=== PATIENT | female | born 1950 | race Caucasian/White ===

== ENCOUNTER 2017-07-09 10:18 | Outpatient (CLI) | payer MEDICARE, MEDICAID ==
[2017-07-09 12:22] LABS: #Basophils 0.1 thou/uL (0.0-0.2); #Eosinphils 0.2 thou/uL (0.0-0.7); #Lymphocytes 1.9 thou/uL (1.20-3.40); #Monocytes 0.5 thou/uL (0.11-0.59); #Neutrophils 3.3 thou/uL (1.40-6.50); %Basophils 0.9 % (0.0-1.0); %Eosinophils 2.8 % (0.0-10.0); %Lymphocytes 31.3 % (21.0-51.0); Hematocrit 38.9 % (36.0-47.0); Red Blood Cell (RBC) Count 4.15 mill/uL (4.20-5.40); White Blood Cell (WBC) Count 5.9 thou/uL (4.8-10.8)
[2017-07-09 12:41] LABS: Anion Gap 11 mmol/L (10-20); BUN (Urea Nitrogen) 27 mg/dL (9.8-20.1); Calc. Creatinine Clearance 0 mL/min (70-130); Calcium 9.5 mg/dL (7.8-10.44); Carbon Dioxide 30 mmol/L (23-31); Chloride 102 mmol/L (98-107); Estimated GFR-MDRD 33
--- NOTE | 2017-07-09 14:51 | EKG ---
Test Reason : Blood Pressure : / mmHG Vent. Rate : 063 BPM Atrial Rate : 063 BPM P-R Int : 150 ms QRS Dur : 138 ms QT Int : 454 ms P-R-T Axes : 060 070 028 degrees QTc Int : 464 ms Normal sinus rhythm Left bundle branch block Abnormal ECG Confirmed by AUGUSTINE ESCALANTE ([id number]) on 07/09/2017 2:50:32 PM Referred By: RAMESH Confirmed By:AUGUSTINE ESCALANTE
== END 2017-07-09 10:19 | disposition home or self-care (01) ==
LOC: LABBT 10:18
PROVIDERS: ATTEND Specialist
DX: Z01.818 Encounter for other preprocedural examination (principal); K43.2 Incisional hernia without obstruction or gangrene
CPT/HCPCS: 80048; 85025; 93005; 93010

== ENCOUNTER 2017-07-18 08:22 | Outpatient (CLI) | payer MEDICARE, MEDICAID | END 2017-07-18 08:23 | disposition home or self-care (01) | LOC: DTY/OP 08:22 | PROVIDERS: ATTEND Specialist | DX: Z01.818 Encounter for other preprocedural examination (principal); E66.01 Morbid (severe) obesity due to excess calories | CPT/HCPCS: 97802 ==

== ENCOUNTER 2017-07-22 05:36 | Day surgery (SDC) | payer MEDICARE, MEDICAID ==
[2017-07-09 10:49] VITALS: BMI 42.0
[2017-07-22] MEDS ORDERED: CEFAZOLIN/Water 2 GM/20 ML SYRINGE ONE (06:19)
[2017-07-22] MEDS ORDERED: Ketorolac Tromethamine 30 MG/ML VIAL ONE (06:20)
[2017-07-22] MEDS ORDERED: Bupivacaine PF 0.5% 30 ML VIAL ONE (06:47)
[2017-07-22] MEDS ORDERED: Midazolam HCl 2 mg/2 ml Vial ONE ×2 (07:00→07:04)
[2017-07-22] MEDS ORDERED: Fentanyl 100 MCG/2 ML VIAL ONE ×4 (07:00→11:28)
[2017-07-22] MEDS ORDERED: diphenhydrAMINE 50 MG/ML VIAL ONE (07:40)
[2017-07-22] MEDS ORDERED: Glycopyrrolate 0.2 MG/ML 5 ML SYRINGE ONE (07:40)
[2017-07-22] MEDS ORDERED: Metoclopramide HCl 10 MG/2 ML VIAL ONE (07:40)
[2017-07-22] MEDS ORDERED: Ondansetron HCl/PF 4 MG/2 ML Vial ONE (07:40)
[2017-07-22] MEDS ORDERED: Lidocaine 1% PF 5 ML VIAL ONE (07:40)
[2017-07-22] MEDS ORDERED: Dexamethasone 20 MG/5 ML VIAL ONE (07:40)
[2017-07-22] MEDS ORDERED: Propofol 200 MG/20 ML VIAL ONE (07:40)
[2017-07-22] MEDS ORDERED: Morphine 2 MG/ML SYRINGE ONE ×2 (11:39→12:06)
[2017-07-22] MEDS ORDERED: HYDROcodone/Acetaminophen 5/325 mg Tablet ONE (13:01)
--- NOTE | 2017-07-22 20:16 | OP ---
DATE OF PROCEDURE: 07/22/2017 PREOPERATIVE DIAGNOSIS: Recurrent ventral incisional hernia. POSTOPERATIVE DIAGNOSIS: Recurrent ventral incisional hernia. OPERATION PERFORMED: Laparoscopic repair of recurrent ventral incisional hernia with mesh using an 11 cm circular mesh patch. SURGEON: Jm Bryan M.D. ANESTHESIA: General endotracheal. INDICATIONS: The patient is a morbidly obese 67-year-old white female. She has a history of a lapa rotomy for perforated bladder associated with diverticulitis. About a year ago, she underwent lapar oscopic repair of a ventral incisional hernia. She seemed to have excellent results from this initi ally, but returned recently with evidence of a recurrent hernia with bulging of bowel at the area of the umbilicus. She is returned to the operating room at this time for repair. OPERATIVE PROCEDURE IN DETAIL: Informed consent was obtained. The patient was taken to the operati ng room where general endotracheal anesthesia was obtained with the patient in supine position. Abd omen was prepped with ChloraPrep and draped in sterile fashion. Local anesthetic was infiltrated an d a 5 mm right lateral incision was created at prior incision site. A Veress needle was passed thro ugh this and pneumoperitoneum established using carbon dioxide up to a pressure of 15 mmHg. A 5 mm trocar port was passed through this same incision. Laparoscopic camera was passed through this port . Under direct vision, I placed 2 additional ports at the same side as prior ports, one in the righ t upper and one in the right lower abdomen. Attention was turned internally. There was an easily visible hernia defect with minimal adhesions t o this. There were several loops of bowel present within this that reduced spontaneously with mild external pressure. There was one omental adhesion and one bowel adhesion to the anterior abdominal wall. These were each taken down uneventfully. There was some omentum adherent to the left side of the abdomen extending around to the inferior aspect of the abdominal wall. There appeared to have been a mesh in this area. Attention was turned to the defect. It had internal measurements of 3 x 4 cm. The defect was close d using percutaneous sutures of 0 Ethibond placed with a GraNee needle. Three sutures were placed w ith excellent closure of the defect. An 11 cm mesh patch was obtained using Ventralex mesh. This was prepared on the back table by efrain galaviz four quadrant sutures of 0 Ethibond. The mesh was moistened and placed in the abdominal cavity. The sutures were withdrawn through the anterior abdominal wall using the GraNee needle. The mesh w as appropriately oriented with the anti-adhesive coating internally. The sutures were tied giving e xcellent coverage of the mesh over the hernia defect. A final suture of 0 Ethibond was placed throu gh the center of the mesh patch. The secure strap device was used to place a series of absorbable tacks circumferentially around the outside of the mesh as well as around the inside. This afforded excellent approximation of the mesh to the abdominal wall. In order to appropriately place the tacks, I had to place two additional 5 mm ports on the left lateral abdominal wall and this was done under direct vision. The fascia at the 12 mm port site was closed with 0 Vicryl suture using a GraNee needle. All ports and instruments were removed under direct vision. Pneumoperitoneum was carefully evacuated. Quarte r percent Marcaine with epinephrine was infiltrated in each port site. Skin edges approximated with 4-0 Monocryl subcuticular suture. Dermabond was placed externally. A compression dressing was wilma jordin within the umbilicus using 4 x 4 gauze as well as Kerlix roll, foam tape and Mastisol. There we re no complications. Blood loss was negligible. The patient tolerated the procedure well and was t aken to recovery in stable condition.
== END 2017-07-22 14:05 | disposition home or self-care (01) ==
LOC: SDC 05:36
PROVIDERS: ATTEND Specialist
PROC: 0WUF4JZ Supplement Abdominal Wall with Synthetic Substitute, Percutaneous Endoscopic Approach (ICD-10-PCS; principal; 2017-07-22)
DX: K43.0 Incisional hernia with obstruction, without gangrene (principal); I10 Essential (primary) hypertension; K21.9 Gastro-esophageal reflux disease without esophagitis; G25.81 Restless legs syndrome; I44.7 Left bundle-branch block, unspecified; J45.909 Unspecified asthma, uncomplicated; E66.01 Morbid (severe) obesity due to excess calories; Z68.41 Body mass index [BMI] 40.0-44.9, adult; Z88.2 Allergy status to sulfonamides; Z88.8 Allergy status to other drugs, medicaments and biological substances; Z91.041 Radiographic dye allergy status; Z79.899 Other long term (current) drug therapy; Z98.51 Tubal ligation status; Z98.890 Other specified postprocedural states; Z87.440 Personal history of urinary (tract) infections
CPT/HCPCS: 96374; C1781; J0131; J1100; J1200; J1885; J2001; J2250; J2270; J2405; J2704; J2765; J3010; S0020

== ENCOUNTER 2017-09-30 09:46 | Outpatient (CLI) | payer MEDICARE, MEDICAID | END 2017-09-30 09:47 | disposition home or self-care (01) | LOC: BICBD 09:46 | PROVIDERS: ATTEND Internal Medicine | DX: Z78.0 Asymptomatic menopausal state (principal) | CPT/HCPCS: 77080 ==

== ENCOUNTER 2017-11-07 11:30 | Inpatient (IN) | payer MEDICARE, MEDICAID ==
[2018-01-01] MEDS ORDERED: Heparin 5,000 UNITS/ML VIAL ONE (06:11)
[2018-01-01] MEDS ORDERED: Scopolamine 1.5 mg/72 hour Patch ONE (06:12)
[2018-01-01] MEDS ORDERED: cefOXitin 2 GM in Sodium Chloride 0.9% 100 ML IVPB SCH (06:30)
[2018-01-01] MEDS ORDERED: Fentanyl 250 MCG/5 ML VIAL ONE (07:06)
[2018-01-01] MEDS ORDERED: Bupivacaine/Epinephrine 0.25% 30 ML VIAL ONE (07:09)
[2018-01-01] MEDS ORDERED: Promethazine HCl 25 MG/ML VIAL ONE (07:27)
[2018-01-01] MEDS ORDERED: Ondansetron PF 4 MG/2 ML Vial ONE ×2 (07:27→16:33)
[2018-01-01] MEDS ORDERED: Phenylephrine HCL 10 MG/ML VIAL ONE (09:03)
[2018-01-01] MEDS ORDERED: SUGAMMADEX SODIUM 500 MG/5 ML VIAL ONE (09:05)
[2018-01-01] MEDS ORDERED: Midazolam HCl 2 mg/2 ml Vial ONE ×2 (10:25→10:56)
[2018-01-01] MEDS ORDERED: Fentanyl 100 MCG/2 ML VIAL ONE ×2 (11:26→12:55)
[2018-01-01 11:46] LABS: Actual Bicarbonate (HCO3a) 20.1 mEq/L (22-26); Base Excess (BEa) -6.9 mEq/L (0 (+/-) 2.5); CO2 Tension 46.4 mmHg (35.0-45.0); Carboxyhemoglobin (COHb) 1.2 gm% (0.0-3.0); Hematocrit-ABG 40.1 % (36.0-47.0); Hemoglobin (Hb) 12.1 g/dL (12.0-16.0); O2 Tension (PaO2) 138.4 mmHg (80.0-100.0); pH, Arterial 7.26 (7.35-7.45)
[2018-01-01 11:47] LABS: Analyzer IN Cardio OR; Calcium, Ionized 1.2 mmol/L (1.12-1.30); Potassium - ABG Lab 4.4 mmol/L (3.70-5.30); Puncture Site RRA
--- NOTE | 2018-01-01 12:13 | RAD ---
SINGLE VIEW CHEST: HISTORY: Hiatal hernia repair. COMPARISON: 10/01/2012 FINDINGS: A single view of the chest shows a normal sized cardiomediastinal silhouette. There is an endotrache al tube that extends into the right mainstem bronchus and should be withdrawn approximately 4.5 cm. There is extensive subcutaneous air. There is atelectasis in the left lung base. No pneumothorax is visualized. IMPRESSION: 1. Right mainstem intubation. 2. Extensive subcutaneous air. These findings were discussed with Dr. Luna at 11:28 a.m. on 01/01/2018. CODE CR POS: [facility]
[2018-01-01] MEDS ORDERED: D5 1/2 NS w/20 mEq KCL 1,000 ML ONE (13:36)
[2018-01-01] MEDS ORDERED: diphenhydrAMINE 50 MG/ML VIAL IVP PRN (14:18)
[2018-01-01] MEDS ORDERED: Promethazine HCl 25 MG/ML VIAL IM PRN (14:18)
[2018-01-01] MEDS ORDERED: hydrALAZINE 20 MG/ML VIAL SLOW IVP PRN (14:18)
[2018-01-01] MEDS ORDERED: Dextrose 50% Abboject 50 ML SYRINGE SLOW IVP PRN (14:18)
[2018-01-01] MEDS ORDERED: Dextrose 5% in Water 1,000 ML IV PRN (14:18)
[2018-01-01] MEDS ORDERED: Morphine 4 MG/ML VIAL SLOW IVP PRN (14:18)
[2018-01-01] MEDS ORDERED: Hydrocodone-Acetamin 15 ML UDCUP PO PRN (14:18)
[2018-01-01 14:20] VITALS: BMI 38.5
[2018-01-01] MEDS: Ondansetron PF 4 MG/2 ML Vial IVP PRN (14:29)
[2018-01-01] MEDS: D5 1/2 NS w/20 mEq KCL 1,000 ML IV SCH ×2 (14:29→22:03)
[2018-01-01] MEDS: Morphine 4 MG/ML VIAL SLOW IVP PRN ×3 (14:29→22:02)
[2018-01-01] MEDS ORDERED: Lidocaine 1% PF 5 ML VIAL ONE (16:33)
[2018-01-01] MEDS ORDERED: PROPOFOL 200 MG/20 ML VIAL ONE (16:33)
[2018-01-01] MEDS ORDERED: PHENYLEPHRINE-NS 100 MCG/ML 10 ML SYRINGE ONE (16:33)
[2018-01-01] MEDS ORDERED: Dexamethasone 20 MG/5 ML VIAL ONE (16:33)
[2018-01-01] MEDS ORDERED: Succinylcholine Chloride 20 MG/ML 10 ml SYRINGE FS ONE (16:33)
[2018-01-01] MEDS ORDERED: Enoxaparin Sodium 40 MG/0.4 ML SYRINGE SC SCH (21:00)
[2018-01-02] MEDS: Ondansetron PF 4 MG/2 ML Vial IVP PRN (05:59)
[2018-01-02] MEDS: D5 1/2 NS w/20 mEq KCL 1,000 ML IV SCH (05:59)
[2018-01-02 06:07] LABS: ALT (SGPT) 69 U/L (8-55); AST (SGOT) 99 U/L (5-34); Albumin 3.3 g/dL (3.4-4.8); Alkaline Phosphatase 74 U/L (40-150); Anion Gap 11 mmol/L (10-20); BUN (Urea Nitrogen) 27 mg/dL (9.8-20.1); Bilirubin, Total 0.2 mg/dL (0.2-1.2); Calc. Creatinine Clearance 69 mL/min (70-130); Calcium 8.7 mg/dL (7.8-10.44); Carbon Dioxide 19 mmol/L (23-31); Chloride 108 mmol/L (98-107); Estimated GFR-MDRD 45; Globulin 3.1 g/dL (2.4-3.5); Glucose 118 mg/dL (80-115); Hemoglobin 11.6 g/dL (12.0-16.0); Lymphocytes 22 % (21-51); MDiff Complete? YES; Mean Corpuscular HGB CONC 30.9 g/dL (32.0-36.0); Mean Corpuscular Hemoglobin 30.7 pg (27.0-31.0); Mean Corpuscular Volume 99.4 fl (81.0-99.0); Mean Platelet Volume 10.6 fL (7.4-10.4); Monocytes 9 % (0-10); Neutrophil 69 % (42-75); Platelet Count 123 thou/uL (130-400); Potassium 5.5 mmol/L (3.5-5.1); Protein, Total 6.4 g/dL (6.0-8.3); RBC Distribution Width 14.9 % (11.5-14.5); Red Blood Cell (RBC) Count 3.79 mill/uL (4.20-5.40); Sodium 132 mmol/L (136-145); White Blood Cell (WBC) Count 8.3 thou/uL (4.8-10.8)
[2018-01-02] MEDS: Morphine 4 MG/ML VIAL SLOW IVP PRN (08:47)
[2018-01-02] MEDS ORDERED: Pantoprazole 40 MG VIAL IVP SCH (09:00)
[2018-01-02 11:57] VITALS: BP 106/67; TEMP 98.5
--- NOTE | 2018-01-05 10:11 | OP ---
DATE OF OPERATION: 01/01/2018 PREOPERATIVE DIAGNOSES: Morbid obesity and symptomatic cholelithiasis. POSTOPERATIVE DIAGNOSES: Morbid obesity and symptomatic cholelithiasis with a large paraesophageal h iatal hernia. OPERATION PERFORMED: Repair of large paraesophageal hiatal hernia, sleeve gastrectomy using the ViSi Gi device, laparoscopic cholecystectomy. SURGEON: Jm Bryan MD ANESTHESIA: General endotracheal. INDICATIONS: The patient is a 67-year-old morbidly obese white female. She has undergone preoperati ve evaluation and education and presents at this time, enthusiastic to proceed with sleeve gastrectom y. She is recognized to have symptoms referable to gallbladder and ultrasound proven cholelithiasis and I have therefore recommended simultaneous cholecystectomy. DESCRIPTION OF OPERATION: Informed consent was obtained. The patient was taken to the operating sabrina m where general endotracheal anesthesia obtained with the patient in supine position. Abdomen was pr epped with ChloraPrep and draped in sterile fashion. Local anesthetic was infiltrated and a 5-mm sup raumbilical incision was created through which a Veress needle was passed into the abdominal cavity. Pneumoperitoneum was established using carbon dioxide up to a pressure of 15 mmHg. A 5-mm trocar pa ssed through the same incision. Laparoscopic camera was passed this port. Under direct vision, 4 ad ditional ports were placed including 5-mm bilateral subcostal port, a 12-mm right paramedian port, an d a 15-mm left paramedian port. A 5-mm incision was created in the epigastrium through which I passe d the Pb retractor to elevate the left lobe of the liver. Initial inspection of the hiatus revealed a large easily visible hiatal hernia through which the fund us and significant portion of the body was herniating up into the mediastinum. This large hiatal her [place] clearly required repair. I began dissection along the lesser curve by incising the pars flaccida and dissecting down to the right bharathi of the diaphragm. The peritoneum around the hiatal defect was dissected up to the anterior aspect and over onto the left bharathi as well. When I returned my attenti on to the right side, with the stomach retracted distally, I was able to dissect a retroesophageal wi ndow through which I placed a Jean drain. I then mobilized the greater curvature of the stomach. Beginning about 4 cm from the pylorus, the va scular and fatty tissue of the greater curvature was taken down using the LigaSure device in an ascen ding fashion up to the hiatus. The left bharathi is fully cleared. The hernia sac was fully dissected o ut of the mediastinum and reduced. The ViSiGi device had already been passed within the stomach and was used to calibrate the hiatal francesca sure. The hiatus was closed on the posterior aspect with 3 interrupted sutures of 2-0 Ethibond that were sutured with the tie-knot device. Using these three sutures, the hiatus was appropriately close d around the esophagus, leaving adequate room to avoid esophageal impingement. Attention was then turned to the gastrectomy. The ViSiGi device was advanced to the pylorus where it was placed to suction. The gastrectomy was then performed using a series of fires of the [place] st apler in an ascending fashion, beginning at 4 cm from the pylorus along the ViSiGi device and with Vi Lola device on suction. A green load was employed initially followed by a gold load and a series of blue loads up to the angle of His. Great care was taken to avoid narrowing the incisura or the gastr oesophageal junction. When the transection was complete, the gastric tube was inflated using the ViS iGi device with irrigation along the staple line. There was no evidence of air leak or bleeding. Th e ViSiGi device was taken off suction and removed. The resected segment of the stomach was removed t hrough the 15-mm port site which was closed with a zizjht-zz-hixjw suture of 0 Vicryl using the GraNe e needle. Attention was then turned to the gallbladder. The gallbladder was grasped and retracted in a cephala d direction. The infundibulum was grasped and retracted laterally and inferiorly. Careful dissectio n was carried out the apex of the gallbladder identified both the cystic duct and cystic artery and d ividing each of these between clips, leaving 2 on the side to remain within the abdomen. The gallbla dder was dissected off the gallbladder fossa using electrocautery and removed through the 15-mm port site. The upper abdomen was thoroughly irrigated. All irrigant was aspirated. The area of the gall bladder resection, the hiatal hernia repair, and the gastrectomy were all inspected and found to be w ithout evidence of concern. All ports and instruments removed under direct vision. Pneumoperitoneum was carefully evacuated. A 0.25% Marcaine with epinephrine was infiltrated in each port site. Skin edges approximated with 4-0 Monocryl subcuticular suture. Dermabond was placed externally. There w ere no complications. Patient tolerated the procedure well and was taken to recovery room in stable condition. Of note, the patient's tissues were of generally poor quality. Carbon dioxide did dissec t through the subcutaneous tissue which made it difficult to keep the ports within her abdomen. The muscular tissue in the left upper quadrant port quite easily when it was dilated to allow extraction of the stomach leaving a larger than apical defect. Additionally, an intentional left-sided iatrogen ic pneumothorax was created during the dissection in the mediastinum and incision of the left pleura. This allowed easier medialization of the left bharathi of the diaphragm and was felt to be inconsequent ial. Patient tolerated the procedure well and was taken to recovery room in stable condition.
--- NOTE | 2018-01-08 19:37 | PQF ---
BEAR PARISH MICHAEL W MD [id number] SURG [id number] CLINICAL DOCUMENTATION CLARIFICATION FORM: POST DISCHARGE Addendum to original discharge summary date: ____ Late entry note date: __ DATE: 01/08/2018 ATTN: ASIA CHANDLER MD Please exercise your independent, professional judgment in responding to the clarification form. Clinical indicators are provided on the bottom of this form for your review Final Diagnosis on the Pathology Report: CHRONIC CHOLECYSTITIS Clarification of Pathology report: Please check appropriate box(s): [ ] Agree w the pathology finding of: [ x ] Other explanation of pathology findings (please specify) - almost all patients have "chronic cholecystitis" on their path when we take out their gallbladder. It is generally irrelevant and doesn't need to change the coding. [ ] Other diagnosis [ ] Unable to determine For continuity of documentation, please document condition throughout progress notes and discharge summary. Thank You. CLINICAL INDICATORS - SIGNS/ SYMPTOMS / LABS OPERATIVE REPORT PREOPERATIVE DIAGNOSIS: Morbid obesity and symptomatic cholelithiasis POSTOPERATIVE DIAGNOSIS: Morbid obesity and symptomatic cholelithiasis with a large paraesophageal hiatal hernia OPERATION PERFORMED: Repair of large paraesophageal hiatal hernia, sleeve gastrectomy using the ViSiGi device, laparoscopic cholecystectomy PATHOLOGY REPORT B. Gallbladder, cholecystectomy: - Chronic cholecystitis - Cholelithiasis (This form is maintained as a part of the permanent medical record) 2014 [employer]. All Rights Reserved Joel [email or web address] [phone] MTDD
== END 2018-01-02 16:51 | disposition home or self-care (01) | DRG 621 ==
LOC: SURG A 01-01 05:49
PROVIDERS: ADMIT Specialist; ATTEND Specialist
PROC: 0BQT4ZZ Repair Diaphragm, Percutaneous Endoscopic Approach (ICD-10-PCS; principal; 2018-01-01)
PROC: 0FT44ZZ Resection of Gallbladder, Percutaneous Endoscopic Approach (ICD-10-PCS; 2018-01-01)
PROC: 0DB64Z3 Excision of Stomach, Percutaneous Endoscopic Approach, Vertical (ICD-10-PCS; 2018-01-01)
DX: E66.01 Morbid (severe) obesity due to excess calories (principal); I12.9 Hypertensive chronic kidney disease with stage 1 through stage 4 chronic kidney disease, or unspecified chronic kidney disease; K80.20 Calculus of gallbladder without cholecystitis without obstruction; K44.9 Diaphragmatic hernia without obstruction or gangrene; N18.2 Chronic kidney disease, stage 2 (mild); Z68.38 Body mass index [BMI] 38.0-38.9, adult
CPT/HCPCS: 36415; 71045; 80053; 82805; 85025; 88304; 88307; 88312; 94002; C9113; J0131; J0694; J1100; J1644; J1650; J2001; J2250; J2270; J2370; J2405; J2550; J2704; J3010; J7050

== ENCOUNTER 2017-11-17 07:44 | Outpatient (CLI) | payer MEDICARE, MEDICAID | END 2017-11-17 07:45 | disposition home or self-care (01) | LOC: BICULT 07:44 | PROVIDERS: ATTEND Specialist | DX: R10.9 Unspecified abdominal pain (principal); K80.20 Calculus of gallbladder without cholecystitis without obstruction; N28.1 Cyst of kidney, acquired | CPT/HCPCS: 76705 ==

== ENCOUNTER 2018-02-05 12:33 | Emergency (ER) | payer MEDICARE, MEDICAID ==
[2018-02-05 13:27] LABS: Bilirubin Negative (Negative); Blood, Urine Negative (Negative); Clarity CLEAR (Clear); Glucose, Urine (Dipstick) Negative (Negative); Leukocyte Trace (Negative); Nitrite Negative (Negative); Protein, Urine (Dipstick) Negative (Neg-Trace); Specific Gravity, Urine 1.013 (1.002-1.036); Urobilinogen 0.2 mg/dL (0.2-1.0)
[2018-02-05 13:29] LABS: Bacteria/HPF None Seen HPF (None Seen); Hyaline Casts/LPF 0-3 HYALINE CAST LPF (0-3 Hyaline); Pathc Cast-AUWi Flag 0.87 (0-2.49); RBC/HPF 0-3 HPF (0-3); Squamous Epithelial 0-3 HPF (0-3); WBC/HPF 0-3 HPF (0-3)
[2018-02-05 13:58] LABS: #Eosinphils 0.1 thou/uL (0.0-0.7); #Lymphocytes 1.5 thou/uL (1.20-3.40); #Monocytes 0.7 thou/uL (0.11-0.59); #Neutrophils 4.8 thou/uL (1.40-6.50); %Basophils 0.6 % (0.0-1.0); %Eosinophils 1.6 % (0.0-10.0); %Lymphocytes 21.1 % (21.0-51.0); %Monocytes 9.7 % (0.0-10.0); %Neutrophils 67.1 % (42.0-75.0); Hemoglobin 12.8 g/dL (12.0-16.0); Mean Corpuscular HGB CONC 34.5 g/dL (32.0-36.0); Mean Corpuscular Hemoglobin 33.4 pg (27.0-31.0); Mean Corpuscular Volume 96.7 fl (81.0-99.0); Mean Platelet Volume 10.9 fL (7.4-10.4); Platelet Count 114 thou/uL (130-400); RBC Distribution Width 14.1 % (11.5-14.5); Red Blood Cell (RBC) Count 3.85 mill/uL (4.20-5.40); White Blood Cell (WBC) Count 7.1 thou/uL (4.8-10.8)
[2018-02-05 14:02] LABS: Large Platelets SLIGHT; MDiff Complete? YES; PLT Morphology Comment Appears Decreased; RBC Morphology Normal
[2018-02-05 14:05] LABS: ALT (SGPT) 12 U/L (8-55); AST (SGOT) 16 U/L (5-34); Albumin 3.6 g/dL (3.4-4.8); Alkaline Phosphatase 71 U/L (40-150); Anion Gap 16 mmol/L (10-20); BUN (Urea Nitrogen) 89 mg/dL (9.8-20.1); Bilirubin, Total 0.4 mg/dL (0.2-1.2); Calc. Creatinine Clearance 0 mL/min (70-130); Calcium 10.1 mg/dL (7.8-10.44); Carbon Dioxide 25 mmol/L (23-31); Chloride 99 mmol/L (98-107); Estimated GFR-MDRD 21; Globulin 2.9 g/dL (2.4-3.5); Glucose 102 mg/dL (80-115); Magnesium 2.5 mg/dL (1.6-2.6); Potassium 3.7 mmol/L (3.5-5.1); Protein, Total 6.5 g/dL (6.0-8.3); Sodium 136 mmol/L (136-145)
[2018-02-05 14:09] LABS: CKMB 1.1 ng/mL (0-6.6); Troponin I 0.011 ng/mL (< 0.028)
== END 2018-02-05 14:35 | disposition home or self-care (01) ==
LOC: ERS 12:33
DX: E86.0 Dehydration (principal); J45.909 Unspecified asthma, uncomplicated; E78.5 Hyperlipidemia, unspecified
CPT/HCPCS: 36415; 80053; 81003; 81015; 82553; 83735; 84484; 85025; 93005

== ENCOUNTER 2018-04-06 12:00 | Outpatient (CLI) | payer MEDICARE, MEDICAID | END 2018-04-06 12:01 | disposition home or self-care (01) | LOC: BICULT 12:00 | PROVIDERS: ATTEND Urology | DX: Q61.02 Congenital multiple renal cysts (principal) | CPT/HCPCS: 76770 ==

== ENCOUNTER 2018-08-18 11:56 | Outpatient (CLI) | payer MEDICARE, MEDICAID | END 2018-08-18 11:57 | disposition home or self-care (01) | LOC: BICMAMMO 11:56 | PROVIDERS: ATTEND Internal Medicine | DX: Z12.31 Encounter for screening mammogram for malignant neoplasm of breast (principal) | CPT/HCPCS: 77063; 77067 ==

== ENCOUNTER 2019-01-27 04:51 | Outpatient (CLI) | payer MEDICARE, MEDICAID ==
--- NOTE | 2019-01-27 10:23 | RAD ---
XR Chest Pa Lat STANDARD HISTORY: Preop COMPARISON: 02/04/2014 study FINDINGS: Heart size within normal limits. There are atherosclerotic changes of the aorta. The lungs are clear of infiltrates. There are arthritic changes of the spine. IMPRESSION: No active intrathoracic disease.
[2019-01-27 10:27] LABS: #Basophils 0.1 thou/uL (0.0-0.2); #Eosinphils 0.2 thou/uL (0.0-0.7); #Lymphocytes 2.4 thou/uL (1.20-3.40); #Monocytes 0.7 thou/uL (0.11-0.59); #Neutrophils 3.4 thou/uL (1.40-6.50); %Basophils 0.9 % (0.0-1.0); %Eosinophils 3.5 % (0.0-10.0); %Lymphocytes 34.7 % (21.0-51.0); %Monocytes 10.5 % (0.0-10.0); %Neutrophils 50.4 % (42.0-75.0); Mean Corpuscular Hemoglobin 34.9 pg (27.0-31.0); Mean Platelet Volume 8.8 fL (7.4-10.4); Platelet Count 202 thou/uL (130-400); White Blood Cell (WBC) Count 6.8 thou/uL (4.8-10.8)
[2019-01-27 10:49] LABS: Anion Gap 13 mmol/L (10-20); BUN (Urea Nitrogen) 22 mg/dL (9.8-20.1); Calc. Creatinine Clearance 0 mL/min (70-130); Calcium 10.2 mg/dL (7.8-10.44); Carbon Dioxide 29 mmol/L (23-31); Chloride 104 mmol/L (98-107); Estimated GFR-MDRD 52; Glucose 91 mg/dL (80-115); Potassium 4.9 mmol/L (3.5-5.1); Sodium 141 mmol/L (136-145)
== END 2019-01-27 04:52 | disposition home or self-care (01) ==
LOC: LABBT 04:51
PROVIDERS: ATTEND Specialist
DX: Z01.818 Encounter for other preprocedural examination (principal); M79.3 Panniculitis, unspecified; K43.9 Ventral hernia without obstruction or gangrene
CPT/HCPCS: 71046; 80048; 85025; 93005; 93010

== ENCOUNTER 2019-02-04 05:59 | Inpatient (IN) | payer MEDICARE, MEDICAID ==
[2019-02-04] MEDS ORDERED: Ondansetron PF 4 MG/2 ML Vial ONE ×3 (06:29→17:31)
[2019-02-04] MEDS ORDERED: Morphine 4 MG/ML VIAL ONE ×2 (06:29→07:18)
[2019-02-04 06:55] LABS: #Lymphocytes 1.4 thou/uL (1.20-3.40); #Monocytes 0.4 thou/uL (0.11-0.59); #Neutrophils 7.8 thou/uL (1.40-6.50); %Basophils 0.5 % (0.0-1.0); %Eosinophils 0.3 % (0.0-10.0); %Lymphocytes 14.5 % (21.0-51.0); %Monocytes 3.6 % (0.0-10.0); %Neutrophils 81.1 % (42.0-75.0); Mean Corpuscular Hemoglobin 36.1 pg (27.0-31.0); Mean Platelet Volume 9.2 fL (7.4-10.4); Platelet Count 215 thou/uL (130-400); RBC Distribution Width 11.1 % (11.5-14.5); Red Blood Cell (RBC) Count 4.42 mill/uL (4.20-5.40); White Blood Cell (WBC) Count 9.7 thou/uL (4.8-10.8)
[2019-02-04 07:16] LABS: ALT (SGPT) 14 U/L (8-55); AST (SGOT) 26 U/L (5-34); Albumin 4.8 g/dL (3.4-4.8); Alkaline Phosphatase 130 U/L (40-150); Anion Gap 19 mmol/L (10-20); BUN (Urea Nitrogen) 24 mg/dL (9.8-20.1); Bilirubin, Total 0.4 mg/dL (0.2-1.2); Calc. Creatinine Clearance 0 mL/min (70-130); Carbon Dioxide 23 mmol/L (23-31); Chloride 102 mmol/L (98-107); Estimated GFR-MDRD 39; Globulin 4.3 g/dL (2.4-3.5); Glucose 199 mg/dL (80-115); Lipase 43 U/L (8-78); Potassium 4.4 mmol/L (3.5-5.1); Protein, Total 9.1 g/dL (6.0-8.3); Sodium 140 mmol/L (136-145)
[2019-02-04 07:24] LABS: Calcium 12.1 mg/dL (7.8-10.44)
--- NOTE | 2019-02-04 07:36 | CT ---
ABDOMEN AND PELVIS CT WITH CONTRAST: Date: 02/04/19 COMPARISON: 08/26/16. INDICATION: Abdominal pain with nausea, vomiting, and diarrhea. FINDINGS: There is a left diaphragmatic hernia which contains multiple loops of obstructed, fluid-filled bowel, with hyperemic hanley. Hernia site is at the medial aspect of the left upper abdomen, at site of a pr esumed gastroesophageal procedure with associated hiatal hernia. Redemonstration of numerous large cysts of each kidney, most notable at the right upper pole. Within the abdomen and pelvis, there are numerous loops of obstructed bowel. No disseminated free air is seen. There is atelectasis at the left lung base. Scattered colonic diver ticula present. IMPRESSION: Acutely obstructed medial left diaphragmatic/hiatal hernia with numerous loops of displaced, obstruct ed small bowel within the left chest, with additional numerous dilated loops of small bowel of the ab domen and pelvis. Recommend urgent surgical consultation in this regard. Telephone call with findings placed to ER physician, Vanessa Jasso, at 0705 hours on 02/04/19. CODE CR. POS: [facility]
[2019-02-04] MEDS ORDERED: Benzocaine 20% Spray 60 ML CAN ONE (07:42)
--- NOTE | 2019-02-04 12:16 | HP ---
CHIEF COMPLAINT: Nausea and vomiting with evidence of incarcerated hiatal hernia. HISTORY OF PRESENT ILLNESS: The patient is a 68-year-old white female, well known to myself from prior operations. 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 I assisted Dr. Ott with that surgery. She recuperated nicely. She had a couple of ventral hernias requiring laparoscopic repair, one in 2015 and one in 2016. She tolerated these both nicely. In December of 2017, a little over a year ago, I performed a laparoscopic sleeve gastrectomy and laparoscopic cholecystectomy and repaired a large paraesophageal hiatal hernia. The hernia was repaired without mesh. She has done very well following her weight loss surgery and has lost 72 pounds, which is 67% of her excess body weight. She has ongoing problems regarding panniculitis and infrapannicular infections, and for this reason, repair of a small ventral hernia and panniculectomy were scheduled for today. This was canceled secondary to insurance related issues. The patient presented to the emergency room this morning complaining of abdominal pain with ongoing nausea and vomiting. CT scan obtained while she was there reveals presence of a large volume of intestine up within the left chest consistent with a recurrence of her hiatal hernia. She also has obstructive phenomena in the small intestine and the rest of her abdomen. I am consulted emergently regarding these problems. PAST MEDICAL HISTORY: 1. History of nephrolithiasis. 2. Anxiety. 3. Seasonal allergies. 4. History of shingles. 5. Resolved hypertension (following bariatric surgery), restless legs syndrome, bilateral renal cysts. PAST SURGICAL HISTORY: Left foot and left ankle surgery in February 2006, right wrist surgery in 2006, tonsillectomy in 1961, tubal ligation in 1974, rectocele repair in 2011, cardiac catheterization in 2013, repair of bladder perforation and diverticular perforation in 2013, laparoscopic ventral hernia repair in 2015 and 2016, sleeve gastrectomy with cholecystectomy and hiatal hernia repair in 2018. MEDICATIONS: Include, 1. Gabapentin. 2. Atorvastatin. 3. Esomeprazole. 4. Coreg. 5. Lisinopril. ALLERGIES: TO SULFA AND MACROBID. PERSONAL AND SOCIAL HISTORY: She is single with 2 children. Her son is present at bedside. She is retired and lives by herself. She does not smoke and does not drink alcohol. REVIEW OF SYSTEMS: Otherwise unremarkable. FAMILY HISTORY: Noncontributory. PHYSICAL EXAMINATION: VITAL SIGNS: She is afebrile. Vital signs within normal limits in the emergency room. GENERAL: She is a well-developed, well-nourished, pleasant white female, resting in bed, in no acute distress. She is alert and oriented x3. Nasogastric tube is in place. HEAD, EYES, EARS, NOSE, AND THROAT: Unremarkable. NECK: Supple. LUNGS: Clear to auscultation. CARDIAC: Regular rate and rhythm. ABDOMEN: Diffusely uncomfortable, but without peritoneal findings. Bowel sounds are present and hypoactive. EXTREMITIES: Unremarkable. LABORATORY DATA: Her white blood cell count is 9.7, hemoglobin is 16. Basic metabolic panel reveals normal electrolytes. Her BUN and creatinine are slightly elevated at 24 and 1.3. Albumin is 4.8. ASSESSMENT AND PLAN: The patient with apparent recurrent hiatal hernia. There appears to be incarcerated large volume of small bowel. I recommend laparoscopic attempt. Given the small bowel dilatation, I may not be able to adequately visualize, so this may have to convert to an open surgery. I discussed all this in detail with the patient and her son. She understands and agrees to proceed with surgery. I would recommend repair of this recurrent hernia with mesh. Job ID: [id number]
[2019-02-04] MEDS ORDERED: Bupivacaine/Epinephrine 0.25% 30 ML VIAL ONE (13:18)
[2019-02-04] MEDS ORDERED: Fentanyl 250 MCG/5 ML VIAL ONE (13:20)
[2019-02-04] MEDS ORDERED: Fentanyl 100 MCG/2 ML VIAL ONE ×3 (14:50→17:21)
[2019-02-04] MEDS ORDERED: Promethazine HCl 25 MG/ML VIAL SLOW IVP PRN (16:41)
[2019-02-04] MEDS ORDERED: Ondansetron HCl/PF 4 MG/2 ML Vial IVP PRN (16:41)
[2019-02-04] MEDS ORDERED: Promethazine HCl 25 MG/ML VIAL IM PRN ×2 (16:41→18:18)
[2019-02-04] MEDS ORDERED: Promethazine HCl 25 MG/ML VIAL ONE (16:54)
[2019-02-04] MEDS ORDERED: Dextrose 5% in Water 1,000 ML IV PRN (18:18)
[2019-02-04] MEDS ORDERED: Ondansetron PF 4 MG/2 ML Vial IVP PRN (18:18)
[2019-02-04] MEDS ORDERED: Dextrose 50% Abboject 50 ML SYRINGE SLOW IVP PRN (18:18)
[2019-02-04] MEDS ORDERED: Acetaminophen 1,000 MG in Premix Bag 1 BAG IVPB SCH (18:18)
[2019-02-04] MEDS ORDERED: Morphine 4 MG/ML VIAL SLOW IVP PRN (18:18)
[2019-02-04] MEDS ORDERED: hydrALAZINE 20 MG/ML VIAL SLOW IVP PRN (18:18)
[2019-02-04] MEDS ORDERED: Morphine 2 MG/ML SYRINGE SLOW IVP PRN (18:18)
[2019-02-04 18:24] VITALS: BMI 28.7
[2019-02-04] MEDS: Lactated Ringer's 1,000 ML IV SCH (18:34)
[2019-02-04] MEDS: Acetaminophen 1,000 MG in Premix Bag 1 BAG IVPB SCH (20:05)
[2019-02-05] MEDS: Acetaminophen 1,000 MG in Premix Bag 1 BAG IVPB SCH ×2 (02:44→09:06)
[2019-02-05] MEDS: Lactated Ringer's 1,000 ML IV SCH (02:44)
[2019-02-05 06:32] LABS: #Eosinphils 0.1 thou/uL (0.0-0.7); #Lymphocytes 1.6 thou/uL (1.20-3.40); #Monocytes 0.6 thou/uL (0.11-0.59); #Neutrophils 5.2 thou/uL (1.40-6.50); %Basophils 0.5 % (0.0-1.0); %Eosinophils 1.1 % (0.0-10.0); %Lymphocytes 21.5 % (21.0-51.0); %Monocytes 8.3 % (0.0-10.0); %Neutrophils 68.7 % (42.0-75.0); Hemoglobin 11.8 g/dL (12.0-16.0); Mean Corpuscular HGB CONC 33.5 g/dL (32.0-36.0); Mean Corpuscular Hemoglobin 34.6 pg (27.0-31.0); Mean Platelet Volume 9.3 fL (7.4-10.4); Platelet Count 142 thou/uL (130-400); RBC Distribution Width 11.4 % (11.5-14.5); Red Blood Cell (RBC) Count 3.42 mill/uL (4.20-5.40); White Blood Cell (WBC) Count 7.6 thou/uL (4.8-10.8)
[2019-02-05 06:41] LABS: Anion Gap 10 mmol/L (10-20); BUN (Urea Nitrogen) 18 mg/dL (9.8-20.1); Calc. Creatinine Clearance 62 mL/min (70-130); Calcium 8.7 mg/dL (7.8-10.44); Carbon Dioxide 24 mmol/L (23-31); Chloride 107 mmol/L (98-107); Estimated GFR-MDRD 57; Glucose 101 mg/dL (80-115); Potassium 3.8 mmol/L (3.5-5.1); Sodium 137 mmol/L (136-145)
--- NOTE | 2019-02-05 08:32 | OP ---
DATE OF PROCEDURE: 02/04/2019 PREOPERATIVE DIAGNOSIS: Incarcerated hiatal hernia. POSTOPERATIVE DIAGNOSIS: Incarcerated hiatal hernia. OPERATION PERFORMED: Laparoscopic repair of incarcerated hiatal hernia with biologic mesh using pliable Strattice mesh. ANESTHESIA: General endotracheal. INDICATIONS: The patient is a 68-year-old white female, well known to myself. A little over a year ago, I performed a laparoscopic sleeve gastrectomy as well as laparoscopic cholecystectomy and repair of a large paraesophageal hiatal hernia. She presented to the emergency room at this time complaining of abdominal pain with nausea and vomiting. CT scan revealed a large diaphragmatic hernia with multiple loops of small bowel incarcerated within the left chest. She is taken to the operating at this time for repair. DESCRIPTION OF OPERATION: Informed consent was obtained. The patient was taken to the operating room where general endotracheal anesthesia was obtained with the patient in supine position. Abdomen was prepped with ChloraPrep and draped in sterile fashion. Local anesthetic was infiltrated using 0.25% Marcaine with epinephrine. A 5 mm supraumbilical incision was created through prior incision site. Veress needle was passed through this incision and pneumoperitoneum established with carbon dioxide up to pressure of 15 mmHg. A 5 mm trocar port was passed through the same incision. Laparoscopic camera was passed through this port. Under direct vision, I placed 4 more ports in a standard fashion for fundoplication. These ports were a 11 mm left epigastric port, a 5 mm left lateral port, a 5 mm right epigastric port, and a 5 mm lateral subcostal port. The snake retractor was used to elevate the left lobe of the liver. This revealed essentially no adhesions to the underside of the liver. I was able to clearly see the hiatal hernia with small bowel protruding up into this. I carefully withdrew the small bowel from this defect. At times, this required a steady traction to remove this secondary to the large volume of intestine up within the chest. Although it is difficult to say after the fact, I would guess that there was about 3 feet of small bowel up within the mediastinum and left chest. All of the bowel appeared viable and was removed without injury. Later in the case this was all inspected and again appeared to be viable and without evidence of injury. Attention was turned to the hiatus. There was omentum adherent to the hiatus and this was taken down with LigaSure. I was able to look in through the defect and it seemed to communicate with the left pleural space. I suspect that this is where the bulk of the intestine had herniated to. The unusual aspect about this herniation is that this was on the anterior aspect of the hiatus. The sleeve gastrectomy was still intact and had a normal size and confirmation. This was fairly densely adherent to the posterior aspect of the hiatus. I attempted to dissect this, but after a period of time found this challenging, was fearful of the potential of injury or devascularization. It was difficult or impossible for me to discern whether I was looking at esophagus or stomach at this level. I suspect that this was part of the sleeve gastrectomy at the level of the hiatus, but again, I was unable to fully mobilize this. There were also adhesions between this and the mediastinal contents and mobilization of that would have been potentially dangerous as well. The columns of the crura of the diaphragm were viable, normal appearing, appropriately thick layers of muscle on both the right and left bharathi. There were some adhesion like bands on the right side over near the liver and these were taken down to give more than adequate laxity and mobilization to approximate this tissue on the anterior aspect of the esophagus/stomach. This was repaired with 2 interrupted sutures of 0 Bralon with the knot tied extracorporeally. I then obtained a pliable piece of Strattice mesh. This is 6 x 8 cm. I then cut this into a square that was 6 x 6 cm and cut an arc of tissue out of the inferior aspect of this. This was then passed into the abdominal cavity and positioned over the defect such that the two legs of the patch extended down adjacent to the hiatus on either side, resting against the diaphragmatic crura. The two legs of the mesh were secured to the right and left bharathi with single interrupted sutures of 0 Bralon. Therefore, I fixed the mesh appropriately posteriorly. I then obtained Tisseel and sprayed this across the diaphragm and the area of the closure on the anterior aspect and secured the mesh patch against this with the fibrin glue. This appeared to be well approximated in all areas giving the mesh a flat confirmation against the diaphragm. The bowel was then fully inspected at this point with no findings of abnormality. The fascial defect at the 11 mm port site was closed with 0 Vicryl suture using a GraNee needle. The snake retractor was removed uneventfully. All ports and instruments were removed under direct vision. Pneumoperitoneum was carefully evacuated. 0.25% Marcaine with epinephrine was infiltrated at each port site and skin edges approximated with 4-0 Monocryl subcuticular suture. Dermabond was placed externally. There were no complications. The patient tolerated the procedure well and was taken to recovery room in stable condition. Job ID: [id number]
[2019-02-05] MEDS ORDERED: Lactated Ringer's 1,000 ML IV SCH (08:45)
[2019-02-05] MEDS ORDERED: Pantoprazole 40 MG VIAL IVP SCH (09:00)
[2019-02-05 12:02] VITALS: BP 148/70; TEMP 97.7
--- NOTE | 2019-02-06 02:20 | DIS ---
DATE OF ADMISSION: 02/04/2019 DATE OF DISCHARGE: 02/05/2019 ADMISSION DIAGNOSIS: Incarcerated hiatal hernia. DISCHARGE DIAGNOSIS: Incarcerated hiatal hernia. OPERATION PERFORMED: Laparoscopic repair of incarcerated recurrent hiatal hernia with biologic mesh patch. ADMISSION HISTORY: The patient is well known to myself from prior operations. She presented to the emergency room yesterday with nausea, vomiting, and abdominal pain. CT scan revealed a large volume of small bowel present within the mediastinum and left chest. She was taken urgently to the operating room for repair. HOSPITAL COURSE: She underwent uneventful surgery. The small bowel was definitely incarcerated, but it was reducible. The hernia was repaired with suture and Strattice mesh patch. She had an uneventful night. She tolerated her diet this morning and ambulated uneventfully. She notes her incisional discomfort is minimal. She had complained of left shoulder pain, but noted this was improving already. Her laboratory studies revealed that her hemoglobin is stable at 11.8, white blood cell count is 7.6. Differential is unremarkable. Basic metabolic panel is entirely normal. She was dehydrated prior to her surgery with a creatinine of 1.35, but this is normalized by this morning. She was discharged home without any new medications. She has some liquid pain medication from her bariatric surgery last year that she felt that she could use if she needed it and she will otherwise resume her usual home medications. I will see her back in about 2 weeks to check her progress. Job ID: [id number]
--- NOTE | 2019-02-06 09:47 | EKG ---
Test Reason : Blood Pressure : / mmHG Vent. Rate : 070 BPM Atrial Rate : 070 BPM P-R Int : 142 ms QRS Dur : 144 ms QT Int : 444 ms P-R-T Axes : 036 -07 081 degrees QTc Int : 479 ms Normal sinus rhythm Left bundle branch block Abnormal ECG No change from 02/05/18 Confirmed by ANGELINA OBANDO DO ([id number]), editor map PETER DINERO ([id number]) on 02/06/2019 9:47:22 AM Referred By: Confirmed By:ANGELINA OBANDO DO
== END 2019-02-05 15:10 | disposition home or self-care (01) | DRG 328 ==
LOC: ERS 05:59 → ERHOLD 08:10 → SURG A 17:08
PROVIDERS: ADMIT Specialist; ATTEND Specialist
PROC: 0BUT4JZ Supplement Diaphragm with Synthetic Substitute, Percutaneous Endoscopic Approach (ICD-10-PCS; principal; 2019-02-04)
DX: K44.0 Diaphragmatic hernia with obstruction, without gangrene (principal); F41.9 Anxiety disorder, unspecified; G25.81 Restless legs syndrome; Z98.51 Tubal ligation status; Z90.89 Acquired absence of other organs; Z90.49 Acquired absence of other specified parts of digestive tract; Z88.2 Allergy status to sulfonamides; Z88.1 Allergy status to other antibiotic agents
CPT/HCPCS: 36415; 74177; 80048; 80053; 83690; 84484; 85025; 93005; 96361; 96374; 96375; 96376; C9113; J0131; J0690; J2270; J2405; J2550; J3010; Q4130

== ENCOUNTER 2019-02-16 12:54 | Observation (INO) | payer MEDICARE, MEDICAID ==
[~2019-02-16 12:54] MED LIST: Iopamidol 370 76% 100 ML VIAL ONE; Iopamidol 370 76% 50 ML VIAL FS ONE
[2019-02-16 13:47] LABS: #Basophils 0.1 thou/uL (0.0-0.2); #Eosinphils 0.3 thou/uL (0.0-0.7); #Lymphocytes 2.2 thou/uL (1.20-3.40); #Monocytes 0.6 thou/uL (0.11-0.59); #Neutrophils 4.9 thou/uL (1.40-6.50); %Eosinophils 3.9 % (0.0-10.0); %Lymphocytes 26.9 % (21.0-51.0); %Monocytes 7.2 % (0.0-10.0); %Neutrophils 60.9 % (42.0-75.0); Hemoglobin 13.1 g/dL (12.0-16.0); Mean Corpuscular HGB CONC 33.8 g/dL (32.0-36.0); Mean Corpuscular Hemoglobin 34.5 pg (27.0-31.0); Platelet Count 229 thou/uL (130-400); RBC Distribution Width 11.9 % (11.5-14.5); Red Blood Cell (RBC) Count 3.79 mill/uL (4.20-5.40)
[2019-02-16] MEDS ORDERED: Morphine 4 MG/ML VIAL ONE (14:07)
[2019-02-16] MEDS ORDERED: Ondansetron PF 4 MG/2 ML Vial ONE (14:07)
[2019-02-16 14:09] LABS: ALT (SGPT) 7 U/L (8-55); AST (SGOT) 16 U/L (5-34); Albumin 3.6 g/dL (3.4-4.8); Alkaline Phosphatase 77 U/L (40-150); Anion Gap 13 mmol/L (10-20); BUN (Urea Nitrogen) 16 mg/dL (9.8-20.1); Bilirubin, Total 0.3 mg/dL (0.2-1.2); Calc. Creatinine Clearance 0 mL/min (70-130); Calcium 9.4 mg/dL (7.8-10.44); Carbon Dioxide 24 mmol/L (23-31); Chloride 106 mmol/L (98-107); Estimated GFR-MDRD 68; Globulin 3.1 g/dL (2.4-3.5); Glucose 89 mg/dL (80-115); Lipase 60 U/L (8-78); Potassium 4.2 mmol/L (3.5-5.1); Protein, Total 6.7 g/dL (6.0-8.3); Sodium 139 mmol/L (136-145)
[2019-02-16 15:44] LABS: Bilirubin Negative (Negative); Blood, Urine Small (Negative); Clarity CLEAR (Clear); Glucose, Urine (Dipstick) Negative (Negative); Leukocyte Negative (Negative); Nitrite Negative (Negative); Protein, Urine (Dipstick) Negative (Neg-Trace); Specific Gravity, Urine 1.006 (1.002-1.036); Urobilinogen 0.2 mg/dL (0.2-1.0)
[2019-02-16 15:45] LABS: Bacteria/HPF None Seen HPF (None Seen); Hyaline Casts/LPF 4-6 HYALINE CAST LPF (0-3 Hyaline); Pathc Cast-AUWi Flag 0.95 (0-2.49); RBC/HPF 0-3 HPF (0-3); Squamous Epithelial 0-3 HPF (0-3); WBC/HPF 0-3 HPF (0-3)
--- NOTE | 2019-02-16 18:22 | HP ---
CHIEF COMPLAINT: Postop nausea, vomiting, diarrhea. HISTORY OF PRESENT ILLNESS: This is a 68-year-old female who underwent laparoscopic hiatal hernia repair by Dr. Bryan on 02/04/2019. She has noted oapfyzuy-[id number]-[id number] xiphoid epigastric pain since. Last night she ate some meatballs and started to have some nausea. This morning, she had some crumpled up cheerios followed by hot tea and began to have fairly significant nausea. She dry heaved a few times. This was associated with abdominal bloating and diarrhea which was very watery. She was seen by her primary care physician and then sent to the emergency room for further evaluation. She has now had CT exam of the abdomen and pelvis which reveals a moderate amount of free intraperitoneal air, but no obvious free fluid. No contrast extravasation. She did do oral contrast. She has been hemodynamically stable. She actually feels better. PAST MEDICAL HISTORY: Includes nephrolithiasis, anxiety, shingles, history of hypertension, restless legs syndrome, bilateral renal cysts. PAST SURGICAL HISTORY: Multiple, including orthopedic surgery, repair of bladder perforation and diverticular perforation, ventral hernia repair, sleeve gastrectomy, cholecystectomy, hiatal hernia repair. ALLERGIES: SEE LONG LIST. MEDICATIONS: See list. REVIEW OF SYSTEMS: Otherwise negative unless described above. PHYSICAL EXAMINATION: VITAL SIGNS: Blood pressure is 165/89, her pulse is 63, respirations are 12. She is afebrile. CHEST: Bilateral clear. HEART: Regular rate and rhythm. ABDOMEN: Soft, minimally tender at the xiphoid prominence. No abdominal tenderness. No peritoneal signs. All incisions are healing well without evidence of infection. EXTREMITIES: No ischemia or edema to extremities. LABORATORY DATA: White blood cell count is 8, hemoglobin 13, platelet count is 229, normal differential. Sodium 139, potassium 4.2, creatinine is 0.83. DIAGNOSTIC DATA: CT scan shows free intraperitoneal air, but no evidence of contrast extravasation. ASSESSMENT: 1. Twelve days out status post laparoscopic hiatal hernia repair with incarcerated small intestine in the anterior defect, status post repair and mesh placement by Dr. Bryan. 2. Nausea and diarrhea, made worse last night after having meatballs. 3. Free intraperitoneal air, but no contrast extravasation. PLAN: She is completely stable. Her symptoms are improved. She does not need any urgent operative intervention. We will admit for observation and IV fluid resuscitation. Check stool for Clostridium difficile. I suspect she will be improved in the next few days. Recheck infectious count in the morning. Job ID: [id number]
--- NOTE | 2019-02-16 18:44 | CT ---
CT ABDOMEN AND PELVIS WITH ORAL AND IV CONTRAST 02/16/19 HISTORY: Abdominal pain, nausea, and diarrhea. Patient had hernia a repair surgery of a diaphragmatic hernia o n 02/04/19. COMPARISON: 02/04/19. FINDINGS: The lung bases are unremarkable. There are postop changes of left diaphragmatic hernia repair. The sm all bowel loops are not abnormally dilated. There is free air in the abdomen predominantly in the lef t upper quadrant. Free air is also seen in the lower anterior abdominal wall. No free fluid is seen. The patient is post cholecystectomy. The liver, pancreas, adrenal glands and spleen are stable. Bila teral renal cysts are again seen. The uterus is present. There are degenerative changes in the spine. There are vascular calcifications without evidence of aneurysmal dilatation of the abdominal aorta. There is sigmoid diverticulosis without diverticulitis. IMPRESSION: 1. Free air in the abdomen. This may be due to recent surgery or bowel perforation. Surgical con sultation is recommended. 2. No evidence of bowel obstruction. Discussed over the telephone with Sujatha Reyes of the Emergency Room at 4:35 p.m. POS: [facility]
[2019-02-16] MEDS ORDERED: Dextrose 5% in Water 1,000 ML IV PRN (20:16)
[2019-02-16] MEDS ORDERED: Promethazine HCl 25 MG/ML VIAL IM PRN (20:16)
[2019-02-16] MEDS ORDERED: Morphine 2 MG/ML SYRINGE SLOW IVP PRN (20:16)
[2019-02-16] MEDS ORDERED: Dextrose 50% Abboject 50 ML SYRINGE SLOW IVP PRN (20:16)
[2019-02-16] MEDS ORDERED: hydrALAZINE 20 MG/ML VIAL SLOW IVP PRN (20:16)
[2019-02-16] MEDS ORDERED: Morphine 4 MG/ML VIAL SLOW IVP PRN (20:16)
[2019-02-16] MEDS ORDERED: Acetaminophen 1,000 MG in Premix Bag 1 BAG IVPB PRN (20:16)
[2019-02-16] MEDS ORDERED: Ondansetron PF 4 MG/2 ML Vial IVP PRN (20:16)
[2019-02-16 20:20] VITALS: BMI 28.0
[2019-02-16] MEDS: D5 1/2 NS w/20 mEq KCL 1,000 ML IV SCH (20:50)
[2019-02-16] MEDS: Enoxaparin Sodium 40 MG/0.4 ML SYRINGE SC SCH (20:50)
[2019-02-16] MEDS: Gabapentin 300 MG CAP PO SCH (20:51)
[2019-02-17] MEDS: D5 1/2 NS w/20 mEq KCL 1,000 ML IV SCH (05:12)
[2019-02-17 05:54] LABS: #Basophils 0.1 thou/uL (0.0-0.2); #Eosinphils 0.4 thou/uL (0.0-0.7); #Lymphocytes 2.3 thou/uL (1.20-3.40); #Monocytes 0.6 thou/uL (0.11-0.59); #Neutrophils 2.3 thou/uL (1.40-6.50); %Basophils 1.4 % (0.0-1.0); %Eosinophils 7.8 % (0.0-10.0); %Lymphocytes 40.2 % (21.0-51.0); %Monocytes 10.2 % (0.0-10.0); %Neutrophils 40.4 % (42.0-75.0); Hemoglobin 11.7 g/dL (12.0-16.0); Mean Corpuscular HGB CONC 33.5 g/dL (32.0-36.0); Mean Corpuscular Hemoglobin 34.4 pg (27.0-31.0); Mean Platelet Volume 8.8 fL (7.4-10.4); Platelet Count 199 thou/uL (130-400); White Blood Cell (WBC) Count 5.7 thou/uL (4.8-10.8)
[2019-02-17 06:04] LABS: Anion Gap 9 mmol/L (10-20); BUN (Urea Nitrogen) 9 mg/dL (9.8-20.1); Calc. Creatinine Clearance 73 mL/min (70-130); Calcium 8.7 mg/dL (7.8-10.44); Carbon Dioxide 23 mmol/L (23-31); Chloride 109 mmol/L (98-107); Estimated GFR-MDRD 70; Glucose 99 mg/dL (80-115); Potassium 4.4 mmol/L (3.5-5.1); Sodium 137 mmol/L (136-145)
[2019-02-17] MEDS ORDERED: Lisinopril 2.5 MG TAB PO SCH (09:00)
[2019-02-17] MEDS: Gabapentin 300 MG CAP PO SCH ×3 (10:06→21:39)
[2019-02-17] MEDS: Pantoprazole 40 MG VIAL IVP SCH (10:07)
[2019-02-17] MEDS ORDERED: D5 1/2 NS w/20 mEq KCL 1,000 ML IV SCH (10:56)
[2019-02-17] MEDS ORDERED: Hydrocodone-Acetamin 15 ML UDCUP PO PRN (10:56)
--- NOTE | 2019-02-17 13:56 | PDOC.GSPN ---
Surgery Progress Note: Subj - Subjective Patient reports: feels better, tolerating liquids well Surgery Progress Note: Obj - Vital signs Vital signs: Vital Signs - Most Recent Temp Pulse Resp BP Pulse Ox 97.9 F 63 16 120/74 94 L 02/17/19 11:15 02/17/19 11:15 02/17/19 11:15 02/17/19 11:15 02/17/19 11:15 - Physical Exam General: no distress Cardiovascular: regular rate and rhythm Respiratory: clear to auscultation Abdomen: soft, non tender, nondistended Wound: healing well Surgery Progress Note: Results - Labs Result Diagrams: 02/17/19 05:28 02/17/19 05:28 Lab results: Laboratory Results - last 24 hr 02/17/19 02/17/19 05:28 05:28 WBC 5.7 RBC 3.40 L Hgb 11.7 L Hct 34.9 L MCV 103.0 H MCH 34.4 H MCHC 33.5 RDW 12.0 Plt Count 199 MPV 8.8 Neutrophils % 40.4 L Lymphocytes % 40.2 Monocytes % 10.2 H Eosinophils % 7.8 Basophils % 1.4 H Neutrophils # 2.3 Lymphocytes # 2.3 Monocytes # 0.6 H Eosinophils # 0.4 Basophils # 0.1 Sodium 137 Potassium 4.4 Chloride 109 H Carbon Dioxide 23 Anion Gap 9 L BUN 9 L Creatinine 0.81 Estimated GFR (MDRD) 70 Glucose 99 Calcium 8.7 Surgery Progress Note: A/P - Problem (1) Nausea & vomiting Current Visit: Yes Code(s): R11.2 - NAUSEA WITH VOMITING, UNSPECIFIED Status : Acute - Plan Plan: Post op hiatal hernia repair -full liquids -stool for cdiff
[2019-02-17] MEDS: Enoxaparin Sodium 40 MG/0.4 ML SYRINGE SC SCH (21:39)
[2019-02-18] MEDS: Pantoprazole 40 MG VIAL IVP SCH (08:59)
[2019-02-18] MEDS: Gabapentin 300 MG CAP PO SCH ×3 (09:03→20:16)
[2019-02-18] MEDS: Lisinopril 2.5 MG TAB PO SCH (09:03)
[2019-02-18] MEDS ORDERED: diphenhydrAMINE 50 MG/ML VIAL IVP PRN (11:53)
--- NOTE | 2019-02-18 13:21 | PDOC.GSPN ---
Surgery Progress Note: Subj - Subjective Narrative: Complains of nausea with full liquids including pudding. Feels like it won't go down. No vomitting Surgery Progress Note: Obj - Vital signs Vital signs: Vital Signs - Most Recent Temp Pulse Resp BP Pulse Ox 98.1 F 63 16 121/70 96 02/18/19 12:05 02/18/19 12:05 02/18/19 12:05 02/18/19 12:05 02/18/19 12:05 - Physical Exam General: no distress Cardiovascular: regular rate and rhythm Respiratory: clear to auscultation Abdomen: soft, nondistended, tender (at the xiphoid) Surgery Progress Note: Results - Labs Result Diagrams: 02/17/19 05:28 02/17/19 05:28 Surgery Progress Note: A/P - Problem (1) Nausea & vomiting Current Visit: Yes Code(s): R11.2 - NAUSEA WITH VOMITING, UNSPECIFIED Status : Acute - Plan Plan: Post op hiatal hernia repair (Anterior repair) -persistent nausea/bloating with eating -Will call GI to see for possible upper endoscopy given her persistent symptoms although no wrap was done by Randi at time of surgery
[2019-02-18] MEDS: Enoxaparin Sodium 40 MG/0.4 ML SYRINGE SC SCH (20:16)
--- NOTE | 2019-02-19 00:59 | CON ---
DATE OF CONSULTATION: 02/18/2019 REASON FOR CONSULTATION: Nausea, vomiting, and midepigastric abdominal pain. CONSULTING PHYSICIAN: Cricket Kenyon MD HISTORY OF PRESENT ILLNESS: The patient is a 68-year-old female with past medical history of nephrolithiasis, anxiety, shingles, hypertension, restless legs syndrome, and bilateral renal cysts with recent hiatal hernia repair that was further complicated by small bowel incarceration, now status post mesh, presenting with complaints of nausea, vomiting, and epigastric abdominal pain. Per chart review, the patient underwent a laparoscopic hiatal hernia repair by Dr. Bryan on February 04, 2019, secondary to incarcerated small bowel with the placement of tension-free mesh at that time. Since that surgery, she has had increased epigastric/xiphoid pain since characterized as a dull type pain that is intermittent, is nonradiating and reaches a severity of 7 to 8/10. This pain is worse primarily with eating solid foods (improved with drinking fluids) and sitting up straight with pressure to the region; the pain is better with fasting, states leaning/lying back in bed. With the increased epigastric abdominal pain, this is associated with increased nausea and vomiting, where she would vomit ingested contents within 10-20 minutes after consumption as well as abdominal bloating and dysphagia characterized as the sensation of food getting stuck at roughly the level of the xiphoid process. Given the worsening of her abdominal pain, nausea and vomiting, she ultimately sought healthcare assistance within the [facility], where she was noted to have a CT of the abdomen and pelvis revealing a moderate amount of free intraperitoneal air. She was ultimately admitted to the hospital for workup and management. At this time, the patient states that she is feeling better when lying semi recumbent in bed with very little pain experienced at this time. However, if she does take a deep breath or lean forward, it significantly increases her pain. She has attempted to tolerate a semi-solid diet earlier today with limited success and continued dysphagia located primary at the xiphoid process. Currently, she denies any fevers, chills, hematemesis, melena, hematochezia, diarrhea, or constipation (although the patient has not had a bowel movement in the last 48 hours). REVIEW OF SYSTEMS: A 10-category review of systems was obtained with all responses negative except for the pertinent positives as listed in HPI. PAST MEDICAL HISTORY: As per HPI. PAST SURGICAL HISTORY: Multiple orthopedic surgeries, repair of bladder perforation, repair of diverticular perforation, ventral hernia repair, sleeve gastrectomy, cholecystectomy, and more recently hiatal hernia repair. FAMILY HISTORY: Denies any GI malignancies. SOCIAL HISTORY: Denies tobacco, alcohol, or illicit drug use. OUTPATIENT MEDICATIONS: Reviewed. ALLERGIES: BARIUM, NITROFURANTOIN, SULFA, AND VANILLA. PHYSICAL EXAMINATION: VITAL SIGNS: Temperature 98, pulse 62, blood pressure 143/84, respiratory rate 16, saturating 97% on room air. GENERAL: The patient is lying in bed, in no acute distress. Alert and oriented x4. HEENT: Normocephalic, atraumatic. No JVD or scleral icterus noted. CARDIOVASCULAR: Regular rate and rhythm with no discernible murmurs, gallops, or rubs. RESPIRATORY: Clear to auscultation bilaterally with no discernible wheezes or rales. ABDOMEN: Normoactive bowel sounds. Soft, nondistended. Tenderness to palpation in the left upper quadrant, midepigastric, right upper quadrant, periumbilical and suprapubic regions. EXTREMITIES: No cyanosis, clubbing, or edema. LABORATORY DATA: CBC with a white blood cell count of 5.7, hemoglobin 11.7, hematocrit 34.9, platelets 199. Chemistry with a sodium of 137, potassium 4.4, chloride 109, CO2 of 23, BUN 9, creatinine 0.81, glucose 99, AST 16, ALT 7, alkaline phosphatase 77, and total bilirubin 0.3. IMAGING DATA: CT of the abdomen and pelvis was obtained on February 16, 2019, that showed postop changes of left diaphragmatic hernia repair with no abnormally dilated loops of small bowel. However, there was free air in the abdomen predominantly in the left upper quadrant, but also seen in the lower anterior abdominal wall. The patient is status post cholecystectomy and did have evidence of vascular calcifications without aneurysmal dilatation of the abdominal aorta. Sigmoid diverticulosis was also seen without evidence of diverticulitis. ASSESSMENT AND PLAN: The patient is a 68-year-old female with past medical history of nephrolithiasis, anxiety, shingles, hypertension, restless legs syndrome, bilateral renal cysts, and hiatal hernia status post mesh repair recently, presenting with nausea, vomiting, midepigastric abdominal pain and dysphagia concerning for compression of the lower esophagus. Epigastric abdominal pain/dysphagia. The patient is presenting with a recent history of a hiatal hernia repair secondary to small bowel incarceration and ultimately repaired with tension-free mesh repair. However, in the postoperative period, she continues to have epigastric/xiphoid abdominal pain, as well as nausea vomiting with consumption of primarily solid foods. Given the repair of the diaphragm and the diaphragmatic hiatus, it is concerning for increased pressure/swelling being placed on the distal esophagus and creating essentially a functional obstruction resulting in increased dysphagia type symptoms, abdominal pain as well as a gas bloat type syndrome which could then further contribute to nausea and vomiting. However, this is not echoed on the CT abdomen and pelvis that was obtained just the other day and as such would probably benefit from endoscopic evaluation. RECOMMENDATIONS: 1. We would continue patient on a liquid diet for today making the patient n.p.o. at midnight in preparation for EGD tomorrow. 2. We will plan for EGD tomorrow for intraluminal evaluation of the distal esophagus as well as the gastric sleeve, which may be contributing to essentially a functional obstructive-type process. If there is an obstructive type process, I would be a little leery about balloon dilation especially given her recent surgery and for fear of creating more damage to the diaphragm. 3. Pain control per primary team. We will continue to follow. Please call with any questions. Job ID: [id number]
--- NOTE | 2019-02-19 08:42 | PDOC.GSPN ---
Surgery Progress Note: Subj - Subjective Patient reports: no new complaints Surgery Progress Note: Obj - Vital signs Vital signs: Vital Signs - Most Recent Temp Pulse Resp BP Pulse Ox 98 F 68 14 106/73 95 02/19/19 07:22 02/19/19 07:22 02/19/19 07:22 02/19/19 07:22 02/19/19 07:22 - Physical Exam General: no distress Abdomen: soft, appropriately tender Wound: healing well Surgery Progress Note: Results - Labs Result Diagrams: 02/17/19 05:28 02/17/19 05:28 Surgery Progress Note: A/P - Problem (1) Nausea & vomiting Current Visit: Yes Code(s): R11.2 - NAUSEA WITH VOMITING, UNSPECIFIED Status : Acute - Plan Plan: EGD today -Likely then home in next few days
[2019-02-19] MEDS: Gabapentin 300 MG CAP PO SCH ×3 (09:08→20:08)
[2019-02-19] MEDS: Lisinopril 2.5 MG TAB PO SCH (09:08)
[2019-02-19] MEDS: Pantoprazole 40 MG VIAL IVP SCH (09:09)
[2019-02-19] MEDS ORDERED: Ondansetron HCl/PF 4 MG/2 ML Vial IVP PRN (11:06)
[2019-02-19] MEDS ORDERED: PROPOFOL 200 MG/20 ML VIAL ONE (12:56)
[2019-02-19] MEDS ORDERED: Lidocaine 1% PF 5 ML VIAL ONE (12:56)
--- NOTE | 2019-02-19 17:14 | OP ---
DATE OF PROCEDURE: 02/19/2019 PROCEDURE: Esophagogastroduodenoscopy with biopsy. INDICATION FOR PROCEDURE: Dysphagia, nausea and vomiting. DESCRIPTION OF PROCEDURE: After the risks and benefits of the procedure were explained to the patient including risks of bleeding, infection, perforation, reactions to anesthesia, aspiration and/or pain, informed consent was obtained. The patient was then taken to the endoscopy suite, where deep sedation was administered via propofol and anesthesia support. Once adequate sedation was achieved, the standard gastroscope was introduced into the mouth with intubation of the esophagus, stomach, and the proximal small intestines with the findings listed below. The patient tolerated the procedure well with no immediate perioperative complications. Upon conclusion of the procedure, all equipment was removed from the patient and she was transferred to PACU in satisfactory condition. FINDINGS: Esophagus; normal-appearing mucosa was seen in the proximal and mid esophagus, however, a [id number]-gc-[id number] narrowing was seen in the distal esophagus with mild dilation of the esophagus just proximal to this narrowing. This narrowing was easily traversed with the gastroscope with no clasped knife sensation upon the passage through the narrowing. Two small linear erosions were also seen in the distal esophagus measuring less than 5 mm in size consistent with reflux-mediated erosive esophagitis. Otherwise, there was no evidence of ulcerations, mass lesions, or active/recent bleeding. Stomach; mild increased mucosal erythema seen throughout the entire stomach without any other associated pathology. Surgical change associated with a gastric sleeve bariatric surgery was also seen. Multiple biopsies were taken throughout the stomach for further evaluation of this mucosal erythema. There was no evidence of erosions, ulcerations, mass lesions, or active/recent bleeding nor whether any obstructive-type processes or narrowing within the gastric sleeve itself. Duodenum; normal-appearing mucosa was seen both in the duodenal bulb and second portion of the duodenum. There was no evidence of erosions, ulcerations, mass lesions, or active/recent bleeding. IMPRESSION: 1. Tgcg-zw-wytzrxzz narrowing of the distal esophagus with mild dilation of the esophagus proximal to this consistent with extrinsic compression of the GE junction. 2. Fairview grade A reflux-mediated erosive esophagitis. 3. Diffuse mucosal erythema seen throughout the stomach, status post biopsies. 4. Surgical change associated with gastric sleeve bariatric surgery with no stenosis or obstruction. RECOMMENDATIONS: 1. We will continue the patient on a full liquid diet today and advance as tolerated to a more soft diet given the [id number] narrowing in the distal esophagus. 2. We will continue the patient on pantoprazole 40 mg daily for Fairview grade A reflux esophagitis. 3. Pain control per primary team. 4. Would defer to Surgical Service for further evaluation of extrinsic compression of the distal esophagus. We will sign off at this time. Please call with any questions. Job ID: [id number]
[2019-02-19] MEDS: Enoxaparin Sodium 40 MG/0.4 ML SYRINGE SC SCH (20:08)
[2019-02-20] MEDS: Gabapentin 300 MG CAP PO SCH ×3 (08:27→20:14)
[2019-02-20] MEDS: Lisinopril 2.5 MG TAB PO SCH (08:27)
[2019-02-20] MEDS: Pantoprazole 40 MG VIAL IVP SCH (08:28)
--- NOTE | 2019-02-20 09:12 | PDOC.GSPN ---
Surgery Progress Note: Subj - Subjective Narrative: No nausea, but some difficulty with swallowing. Surgery Progress Note: Obj - Vital signs Vital signs: Vital Signs - Most Recent Temp Pulse Resp BP Pulse Ox 98.2 F 63 14 114/70 98 02/20/19 07:56 02/20/19 07:56 02/20/19 07:56 02/20/19 08:27 02/20/19 07:56 - Physical Exam General: no distress Abdomen: soft, non tender Wound: healing well Surgery Progress Note: Results - Labs Result Diagrams: 02/17/19 05:28 02/17/19 05:28 Surgery Progress Note: A/P - Problem (1) Nausea & vomiting Current Visit: Yes Code(s): R11.2 - NAUSEA WITH VOMITING, UNSPECIFIED Status : Acute Assessment and Plan: Continue fulls until better tolerated. Expect mild dysphagia.
[2019-02-20] MEDS: Enoxaparin Sodium 40 MG/0.4 ML SYRINGE SC SCH (20:15)
[2019-02-21 08:19] VITALS: BP 116/79; TEMP 98.1
[2019-02-21] MEDS: Lisinopril 2.5 MG TAB PO SCH (08:21)
[2019-02-21] MEDS: Gabapentin 300 MG CAP PO SCH (08:21)
--- NOTE | 2019-02-21 09:54 | DIS ---
DATE OF ADMISSION: 02/16/2019 DATE OF DISCHARGE: 02/21/2019 ADMITTING DIAGNOSES: Nausea, vomiting, status post hiatal hernia repair. DISCHARGE DIAGNOSES: Nausea, vomiting, status post hiatal hernia repair. PROCEDURES: Esophagogastroduodenoscopy by Dr. Jacobs without complication. CONDITION ON DISCHARGE: Improved. STAFF: Cricket Kenyon MD HOSPITAL COURSE: Ms. Espinosa was admitted with nausea, vomiting, inability to take even full liquids down. In the emergency room, she had normal labs. She had small amount of free air consistent with recent surgery, but no peritoneal signs. She was hemodynamically stable. She was admitted for IV fluid resuscitation. GI consult was obtained. She had EGD, which revealed mild stenosis at the diaphragmatic hiatus, mild inflammatory and edematous changes. She is tolerating full liquid difficulty to some extents. She is being discharged home today. She was doing well. She will follow up with Dr. Bryan on the 24 of February. Job ID: [id number]
== END 2019-02-21 10:40 | disposition home or self-care (01) ==
LOC: ERS 12:54 → SURG A 19:58
PROVIDERS: ADMIT Surgery; ATTEND Surgery
PROC: 0DB68ZX Excision of Stomach, Via Natural or Artificial Opening Endoscopic, Diagnostic (ICD-10-PCS; principal; 2019-02-19)
DX: R11.2 Nausea with vomiting, unspecified (principal); R13.10 Dysphagia, unspecified; K20.9 Esophagitis, unspecified; R19.7 Diarrhea, unspecified; I10 Essential (primary) hypertension; F41.9 Anxiety disorder, unspecified; G25.81 Restless legs syndrome
CPT/HCPCS: 43239; 74177; 80048; 80053; 83690; 85025 ×2; 88305; 88312; 88313; 96361 ×3; 96372 ×5; 96374; 96375 ×3; 96376 ×2; 99285; G0378 ×3; 36415; 81003; 81015; C9113; J0131; J1200; J1650; J2001; J2270; J2405; J2704; Q9967

== ENCOUNTER 2019-03-01 08:08 | Outpatient (CLI) | payer MEDICARE, MEDICAID ==
--- NOTE | 2019-03-01 11:18 | RAD ---
Upper GI HISTORY: Dysphagia. Abdominal pain. Prior surgery. FINDINGS: Single column barium exam shows mild distention of the lower esophagus. There is decrease i n primary and secondary peristalsis. Gastroesophageal junction is patent. No significant hiatal hernia. Some nonpropulsive tertiary type contractions were demonstrated. Small amount of gastroesopha geal reflux with patient supine. The proximal duodenum takes a somewhat unusual course within the right upper quadrant, overlying the pylorus. Proximal jejunum is in the left upper quadrant of the abdomen. No evidence of bowel obstruction. IMPRESSION: Postoperative changes are apparent. Gastroesophageal junction is patent. No evidence of o bstruction. Presbyesophagus.
== END 2019-03-01 08:09 | disposition home or self-care (01) ==
LOC: RAD 08:08
PROVIDERS: ATTEND Specialist
DX: R11.0 Nausea (principal); Z98.890 Other specified postprocedural states
CPT/HCPCS: 74247

== ENCOUNTER 2019-04-27 14:01 | Outpatient (CLI) | payer MEDICARE, MEDICAID ==
--- NOTE | 2019-04-27 14:43 | ULT ---
Bilateral renal ultrasound CLINICAL INDICATION: Renal cysts. COMPARISON: CT abdomen on 02/16/2019. FINDINGS: Right kidney: Two anechoic cystic lesions are seen in the right kidney largest in the superior pole m easuring 10 cm with second anechoic lesion seen in the midportion right kidney measuring 4.1 cm each of which demonstrates sonographic characteristics compatible with cysts. The cysts were seen on prior CT exam.The right kidney measures 13.6 cm x 6.4 cm. Left kidney: There are 2 anechoic cystic lesion seen in the left kidney each which demonstrates jaren cteristics compatible with cysts. Largest exophytic left renal cyst is seen in the midportion left kidney measuring 4.1 cm with smaller anechoic lesion in the superior pole measuring 2.4 cm. These alisa al cysts were also seen on prior CT exam. The left kidney measures 11.3 cm x 5.8 cm. Urinary bladder: Incompletely distended but otherwise grossly normal in appearance. IMPRESSION: Bilateral renal cysts with largest cyst in the superior pole right kidney measuring 10 cm.
--- NOTE | 2019-04-27 14:52 | RAD ---
SUPINE ABDOMEN: Date: 04/27/19 HISTORY: Calculus of kidney. FINDINGS/IMPRESSION: A peripherally calcified 12 mm density in the overlying left upper quadrant is consistent with a sple mag artery aneurysm which is seen on prior CT of 02/16/19. Post cholecystectomy clips. Unremarkable b owel gas pattern. No evidence of urinary tract calcification identified. \ POS: [facility]
== END 2019-04-27 14:02 | disposition home or self-care (01) ==
LOC: BICULT 14:01
PROVIDERS: ATTEND Urology
DX: N32.1 Vesicointestinal fistula (principal); Q61.02 Congenital multiple renal cysts; N20.0 Calculus of kidney; N18.9 Chronic kidney disease, unspecified; N39.41 Urge incontinence; N28.1 Cyst of kidney, acquired; Z90.49 Acquired absence of other specified parts of digestive tract
CPT/HCPCS: 36415; 74018; 76770; 80048; 81001; 87086

== ENCOUNTER 2019-07-11 14:44 | Emergency (ER) | payer MEDICARE, MEDICAID ==
[2019-07-11 15:35] LABS: #Basophils 0.1 thou/uL (0.0-0.2); #Eosinphils 0.2 thou/uL (0.0-0.7); #Lymphocytes 2.4 thou/uL (1.20-3.40); #Monocytes 0.5 thou/uL (0.11-0.59); #Neutrophils 2.6 thou/uL (1.40-6.50); %Basophils 1.6 % (0.0-1.0); %Eosinophils 4.2 % (0.0-10.0); %Lymphocytes 41.5 % (21.0-51.0); %Monocytes 8.5 % (0.0-10.0); %Neutrophils 44.3 % (42.0-75.0); Hemoglobin 14.9 g/dL (12.0-16.0); Mean Corpuscular HGB CONC 33.9 g/dL (32.0-36.0); Mean Corpuscular Hemoglobin 35.1 pg (27.0-31.0); Mean Platelet Volume 9.5 fL (7.4-10.4); Platelet Count 184 thou/uL (130-400); RBC Distribution Width 11.2 % (11.5-14.5); Red Blood Cell (RBC) Count 4.24 mill/uL (4.20-5.40); White Blood Cell (WBC) Count 5.9 thou/uL (4.8-10.8)
--- NOTE | 2019-07-11 15:45 | CT ---
CT BRAIN NONCONTRAST: DATE: 07/11/2019 HISTORY: 69-year-old female with vertigo FINDINGS: There is no evidence of acute intra-axial or extra-axial hemorrhage. There is no midline shift or any other mass effect. There is no extra-axial fluid collection. There is no evidence of obstructive hydrocephalus. Calvarium is intact. IMPRESSION: No acute intracranial findings.
[2019-07-11 15:58] LABS: ALT (SGPT) 11 U/L (8-55); AST (SGOT) 22 U/L (5-34); Albumin 4.2 g/dL (3.4-4.8); Alkaline Phosphatase 95 U/L (40-110); Anion Gap 16 mmol/L (10-20); BUN (Urea Nitrogen) 18 mg/dL (9.8-20.1); Bilirubin, Total 0.4 mg/dL (0.2-1.2); Calc. Creatinine Clearance 0 mL/min (70-130); Calcium 10.1 mg/dL (7.8-10.44); Carbon Dioxide 22 mmol/L (23-31); Chloride 103 mmol/L (98-107); Estimated GFR-MDRD 54; Globulin 3.7 g/dL (2.4-3.5); Glucose 96 mg/dL (80-115); Magnesium 2.2 mg/dL (1.6-2.6); Potassium 4.5 mmol/L (3.5-5.1); Protein, Total 7.9 g/dL (6.0-8.3); Sodium 136 mmol/L (136-145)
[2019-07-11] MEDS ORDERED: Meclizine HCl 25 MG TAB ONE (16:45)
[2019-07-11 16:47] LABS: Bilirubin Negative (Negative); Blood, Urine Negative (Negative); Clarity Clear (Clear); Glucose, Urine (Dipstick) Normal (Negative); Leukocyte Negative Leu/uL (Negative); Nitrite Negative (Negative); Protein, Urine (Dipstick) Negative (Neg-Trace); Urobilinogen Normal mg/dL (Less than 2)
== END 2019-07-11 17:39 | disposition home or self-care (01) ==
LOC: ERS 14:44
DX: H81.10 Benign paroxysmal vertigo, unspecified ear (principal); E78.5 Hyperlipidemia, unspecified; E78.00 Pure hypercholesterolemia, unspecified; J45.909 Unspecified asthma, uncomplicated; Z79.899 Other long term (current) drug therapy; Z79.51 Long term (current) use of inhaled steroids
CPT/HCPCS: 36415; 70450; 80053; 81003; 83735; 84484; 85025; 93005; J8597

== ENCOUNTER 2019-10-13 07:48 | Outpatient (CLI) | payer MEDICARE, MEDICAID ==
--- NOTE | 2019-10-13 08:27 | MMO ---
Bilateral MAMMO Bilat Screen [facility]. CLINICAL HISTORY: Patient is 69 years old and is seen for screening. The patient has no family history of breast cancer. The patient has no personal history of cancer. VIEWS: The views performed were: bilateral craniocaudal with tomosynthesis and bilateral mediolateral oblique with tomosynthesis. FILMS COMPARED: The present examination has been compared to prior imaging studies performed at [facility] on 06/29/2015, 07/01/2016, 08/05/2017 and 08/18/2018. This study has been interpreted with the assistance of computer-aided detection. MAMMOGRAM FINDINGS: The breasts are almost entirely fat. There are stable benign appearing calcifications seen in both breasts. There are no suspicious masses, suspicious calcifications, or new areas of architectural distortion. IMPRESSION: THERE IS NO MAMMOGRAPHIC EVIDENCE OF MALIGNANCY. A ROUTINE FOLLOW-UP MAMMOGRAM IN 1 YEAR IS RECOMMENDED. THE RESULTS OF THIS EXAM WERE SENT TO THE PATIENT. ACR BI-RADS Category 2 - Benign finding MAMMOGRAPHY NOTE: 1. A negative mammogram report should not delay a biopsy if a dominant of clinically suspicious mass is present. 2. Approximately 10% to 15% of breast cancers are not detected by mammography. 3. Adenosis and dense breasts may obscure an underlying neoplasm. Reported by: RADHA DUMONT MD Electonically Signed: [id number]
== END 2019-10-13 07:49 | disposition home or self-care (01) ==
LOC: BICMAMMO 07:48
PROVIDERS: ATTEND Internal Medicine
DX: Z12.31 Encounter for screening mammogram for malignant neoplasm of breast (principal)
CPT/HCPCS: 77063; 77067

== ENCOUNTER 2020-04-19 12:41 | Outpatient (CLI) | payer MEDICARE, MEDICAID ==
--- NOTE | 2020-04-19 13:30 | RAD ---
XR Abdomen 1 View/KUB History: Calculus of kidney Comparison: Radiograph 2019. CT chest 19 Findings: Surgical clips in the pelvis. Medialization of both femoral heads. Splenic artery calcifications left upper quadrant of the abdomen. No renal tract calculi are apprecia josh. Impression: No calculi projecting over the renal shadows nor expected location of the ureters.
--- NOTE | 2020-04-19 13:46 | ULT ---
US Renal Bilateral STANDARD History: Renal cysts Comparison: Ultrasound and CT exam January 2019 Findings: Real-time grayscale and color evaluation of the kidneys and urinary bladder was performed. Similar appearance of the multicystic kidneys bilaterally with the largest cyst of the superior pole right kidney. No solid mass is appreciated. No hydronephrosis. The technologist is measuring a 6 cm mass on the left side of the urinary bladder, although this is f elt to be interposition of bowel impinging along the left side of the urinary bladder and less likely a mass which could be unexpected given the normal findings of the urinary bladder on the prior exam. Of note, the technologist did say this mass with moving which would not be expected with a solid urinary bladder mass. No renal calculi are appreciated. Impression: 1. Similar appearance bilateral renal cysts largest in the superior pole right kidney measuring up to 10 cm. Cysts appear relatively similar in size from the comparison exam and measurement differences are likely due to technique and angle of measurement. 2. Technologist measures a mass on the left side urinary bladder, although this is felt to be interpo sition of bowel. A CT urogram can be performed if clinically warranted. 3. No hydronephrosis.
== END 2020-04-19 12:42 | disposition home or self-care (01) ==
LOC: BICULT 12:41
PROVIDERS: ATTEND Urology
DX: N20.0 Calculus of kidney (principal); Q61.02 Congenital multiple renal cysts
CPT/HCPCS: 36415; 74018; 76770; 80048; 81001; 87086

== ENCOUNTER 2020-04-26 10:45 | Outpatient (CLI) | payer MEDICARE, MEDICAID ==
--- NOTE | 2020-04-26 11:47 | CT ---
CT ABDOMEN AND PELVIS WITH AND WITHOUT IV CONTRAST 04/26/2020 CLINICAL INFORMATION: Renal cyst. Prior ultrasound examination questioning urinary bladder mass. COMPARISON: 02/16/2019 as well as renal sonogram on 04/19/2020 Technique: Multiple contiguous axial CT images are obtained through the abdomen and pelvis with IV contrast. Cor onal reformatted images are provided. FINDINGS: Lower Chest: Lung bases are clear. Vascular calcifications are seen in the coronary arteries. Vessels: Vascular calcifications are seen in the abdominal aorta and iliac arteries. A peripherally c alcified 1.3 cm splenic artery aneurysm is again seen at the splenic hilum. Abdomen: Portal vein:Patent Gallbladder: Surgically absent. Liver: within normal limits. Spleen: within normal limits. Pancreas: within normal limits. Adrenals: within normal limits. Kidneys: Bilateral renal cysts are again seen. Largest renal cyst is again seen in the superior pole right kidney measuring 9.9 cm which is stable in size. No enhancing renal mass is visualized. There is a calcification at the medial margin of this large cyst. No renal or ureteral calculi are seen batsheva aterally, and there is no hydronephrosis. Bowel: Small hiatal hernia is present. Postoperative changes of the stomach are seen. Loops of small bowel are normal in caliber. Colonic diverticulosis is visualized. Appendix: Not visualized, there are no secondary signs to suggest appendicitis Peritoneum: No ascites or free air; no fluid collection. Mesentery and Retroperitoneum: No enlarged mesenteric or retroperitoneal lymph nodes. Abdominal Wall: There is soft tissue attenuation seen at the level of the umbilicus in the subcutaneo us soft tissues. This is a stable finding compared to the prior exam. There was evidence of a fluid collection and mild soft tissue density in this region on the prior study in 2016. Findings could be related to sequela of prior infection and scarring. Pelvis: Reproductive Organs: No pelvic masses. Bladder: The urinary bladder is incompletely distended or evaluated on this exam. A definite urinary bladder mass is not visualized on this study. Bones: within normal limits. IMPRESSION: 1. Bilateral renal cysts. 2. No renal or ureteral calculi are seen bilaterally. 3. Urinary bladder is incompletely distended. No obvious mass is appreciated within the urinary bladd er as was suggested on prior ultrasound exam. However, given lack of urinary bladder distention, the urinary bladder is not adequately evaluated. Multiple loops of small bowel are closely adjacent t o the urinary bladder which may have potentially accounted for the finding on the prior ultrasound exam. 4. Colonic diverticulosis. 5. Small hiatal hernia with postoperative changes of the stomach. 6. Peripherally calcified splenic artery aneurysm also seen on prior study.
[2020-04-26] MEDS ORDERED: Iopamidol-370 76% 500 ML 1 ML ONE (15:16)
== END 2020-04-26 10:46 | disposition home or self-care (01) ==
LOC: BICCT 10:45
PROVIDERS: ATTEND Urology
DX: Q61.02 Congenital multiple renal cysts (principal); N39.41 Urge incontinence; N30.20 Other chronic cystitis without hematuria; N28.1 Cyst of kidney, acquired; N32.89 Other specified disorders of bladder; K57.30 Diverticulosis of large intestine without perforation or abscess without bleeding; K44.9 Diaphragmatic hernia without obstruction or gangrene; I72.8 Aneurysm of other specified arteries; Z90.49 Acquired absence of other specified parts of digestive tract
CPT/HCPCS: 74178; Q9967

== ENCOUNTER 2020-05-12 09:16 | Outpatient (CLI) | payer MEDICARE, MEDICAID ==
--- NOTE | 2020-05-12 10:15 | RAD ---
2 VIEWS CHEST: Date: 05/12/2020 COMPARISON: 01/27/2019. HISTORY: Brian's syndrome. FINDINGS: Two views of the chest show normal sized cardiomediastinal silhouette. There is no evidence of consol idation, mass, or pleural effusion. Degenerative changes are seen in the spine. IMPRESSION: No evidence of acute cardiopulmonary disease. POS: RAINAA
== END 2020-05-12 09:17 | disposition home or self-care (01) ==
LOC: BICRAD 09:16
PROVIDERS: ATTEND Internal Medicine
DX: G90.2 Horner's syndrome (principal); E04.9 Nontoxic goiter, unspecified; R23.8 Other skin changes; D75.89 Other specified diseases of blood and blood-forming organs
CPT/HCPCS: 36415; 71046; 82607; 84439; 84443; 85025

== ENCOUNTER 2020-06-16 13:22 | Outpatient (CLI) | payer MEDICARE, MEDICAID ==
--- NOTE | 2020-06-16 14:11 | ULT ---
THYROID ULTRASOUND INDICATION: Disorder of the thyroid gland; nodules TECHNIQUE: Grayscale and color Doppler images were obtained of the thyroid gland. COMPARISON: None FINDINGS: Right thyroid lobe: The right thyroid lobe measures 5.8 x 3.7 x 3.7 cm. There is a large, mixed solid and cystic nodule with small fine microcalcifications present involving the right mid thyroid gland. The lesion is wider than tall and fairly well-circumscribed. Thyroid isthmus: The thyroid isthmus measures 0.83 cm. Left thyroid lobe: The left thyroid lobe measures 2.4 x 0.8 x 0.7 cm. IMPRESSION: 1. TIRADS 4 lesion of the right thyroid lobe. Recommend ultrasound-guided FNA for further characteriz ation.
== END 2020-06-16 13:23 | disposition home or self-care (01) ==
LOC: BICULT 13:22
PROVIDERS: ATTEND Otolaryngology Plastic Surgery within the Head & Neck
DX: E07.89 Other specified disorders of thyroid (principal)
CPT/HCPCS: 76536; 81001; 87086

== ENCOUNTER 2020-06-29 10:40 | Outpatient (CLI) | payer MEDICARE, MEDICAID, OTHER ==
[2020-06-30 12:28] LABS: SARS-CoV-2 MS2 Positive; SARS-CoV-2 N Gene Negative; SARS-CoV-2 S Gene Negative; SARS-CoV-2 by NAA Not Detected (NotDetected); SARS-CoV-2 orf1ab Negative
== END 2020-06-29 10:41 | disposition home or self-care (01) ==
LOC: LABBT 10:40
PROVIDERS: ATTEND Otolaryngology Plastic Surgery within the Head & Neck
DX: E04.9 Nontoxic goiter, unspecified (principal); Z20.828 Contact with and (suspected) exposure to other viral communicable diseases
CPT/HCPCS: 87635; U0003

== ENCOUNTER 2020-07-03 12:25 | Day surgery (SDC) | payer MEDICARE, MEDICAID ==
[2020-06-30 14:17] VITALS: BMI 27.4
[2020-07-03] MEDS ORDERED: Sodium Bicarbonate 2.5 MEQ/5 ML VIAL ONE (12:34)
[2020-07-03] MEDS ORDERED: Lidocaine 1% PF 5 ML VIAL ONE (12:34)
[2020-07-03 14:02] VITALS: BP 147/74; TEMP 98.2
--- NOTE | 2020-07-03 16:44 | ULT ---
PROCEDURE: US Thyroid Needle Bx PROVIDED CLINICAL HISTORY: Right thyroid nodule COMPARISON: Thyroid ultrasound on 06/16/2020 TECHNIQUE: After informed consent was obtained, the patient was placed on the sonography table in the supine pos ition. Limited sonographic evaluation of the right lobe of the thyroid gland was performed. The large cystic and solid nodule right lobe of thyroid gland was localized. The area was meticulously pr epped and draped in usual fashion. Skin and subcutaneous tissues at the intended puncture site were infiltrated with buffered 1% lidocai ne for local anesthesia. Utilizing concurrent real-time ultrasound guidance, a total of 4 fine-needle aspiration specimens were obtained utilizing a 25-gauge needle. Hemostasis was achieved w ith direct pressure. Follow-up imaging demonstrates no fluid or findings to suggest hematoma at site of fine-needle aspiration. The patient tolerated the procedure well and without immediate complication. Dry sterile dressing was placed at puncture site. Patient was briefly monitored in the radiology Department and then discharged in stable condition. IMPRESSION: 1. Large cystic and solid nodule right lobe of thyroid gland. 2. Technically successful ultrasound-guided fine-needle aspiration right thyroid nodule.
== END 2020-07-03 13:45 | disposition home or self-care (01) ==
LOC: ULT 12:25
PROVIDERS: ATTEND Otolaryngology Plastic Surgery within the Head & Neck
PROC: 0GBH3ZX Excision of Right Thyroid Gland Lobe, Percutaneous Approach, Diagnostic (ICD-10-PCS; principal; 2020-07-03)
DX: E04.1 Nontoxic single thyroid nodule (principal); Q61.02 Congenital multiple renal cysts; N39.41 Urge incontinence; J45.909 Unspecified asthma, uncomplicated; N18.30 Chronic kidney disease, stage 3 unspecified; F41.9 Anxiety disorder, unspecified; I44.7 Left bundle-branch block, unspecified; K21.9 Gastro-esophageal reflux disease without esophagitis; Z79.899 Other long term (current) drug therapy; Z88.1 Allergy status to other antibiotic agents; Z88.2 Allergy status to sulfonamides; Z91.041 Radiographic dye allergy status; Z98.84 Bariatric surgery status
CPT/HCPCS: 60100; 76942; 88173

== ENCOUNTER 2020-10-26 09:07 | Outpatient (CLI) | payer MEDICARE, MEDICAID ==
--- NOTE | 2020-10-26 12:53 | BD ---
DEXA BONE MINERAL DENSITOMETRY EXAM, DENSITY STUDY: HISTORY: Postmenopausal. FINDINGS: Lumbar Spine: BMD (g/cm2) L1 0.884 T-Score: -1.0 L2 0.988 T-Score: -0.4 L3 1.033 T-Score: -0.5 L4 0.891 T-Score: -1.5 L1-L4 0.942 T-Score: -1.0 Femoral Neck: 0.607 T-Score: -2.2 Total Femur: 0.829 T-Score: -0.9 Impression: 1. Normal bone mineral density of the lumbar spine. Osteopenia of the left femoral neck. 2. Ten-year fracture risk for a major osteoporotic fracture is 20% and of a hip fracture is 4%. The se fracture probabilities are calculated for an untreated patient. POS: STEPHANIA
--- NOTE | 2020-10-26 13:12 | MMO ---
Bilateral MAMMO Bilat Screen [facility]. CLINICAL HISTORY: Patient is 70 years old and is seen for screening. The patient has no family history of breast cancer. The patient has no personal history of cancer. VIEWS: The views performed were: bilateral craniocaudal with tomosynthesis; bilateral mediolateral oblique with tomosynthesis; and left craniocaudal. FILMS COMPARED: The present examination has been compared to prior imaging studies performed at [facility] on 07/01/2016, 08/05/2017, 08/18/2018 and 10/13/2019. This study has been interpreted with the assistance of computer-aided detection. MAMMOGRAM FINDINGS: Benign calcifications are noted bilaterally. There are no suspicious masses, suspicious calcifications, or new areas of architectural distortion. IMPRESSION: THERE IS NO MAMMOGRAPHIC EVIDENCE OF MALIGNANCY. A ROUTINE FOLLOW-UP MAMMOGRAM IN 1 YEAR IS RECOMMENDED. THE RESULTS OF THIS EXAM WERE SENT TO THE PATIENT. ACR BI-RADS Category 2 - Benign finding MAMMOGRAPHY NOTE: 1. A negative mammogram report should not delay a biopsy if a dominant of clinically suspicious mass is present. 2. Approximately 10% to 15% of breast cancers are not detected by mammography. 3. Adenosis and dense breasts may obscure an underlying neoplasm. Reported by: HELGA LEONE MD Electonically Signed: [id number]
== END 2020-10-26 09:08 | disposition home or self-care (01) ==
LOC: BICMAMMO 09:07
PROVIDERS: ATTEND Internal Medicine
DX: Z12.31 Encounter for screening mammogram for malignant neoplasm of breast (principal); Z13.820 Encounter for screening for osteoporosis; Z78.0 Asymptomatic menopausal state; M85.852 Other specified disorders of bone density and structure, left thigh
CPT/HCPCS: 77063; 77067; 77080

== ENCOUNTER 2020-11-17 07:35 | Outpatient (CLI) | payer MEDICARE, MEDICAID ==
--- NOTE | 2020-11-17 09:39 | CT ---
CT neck soft tissues with contrast: 11/17/2020 HISTORY: 70-year-old female with "lymphadenopathy" COMPARISON: None FINDINGS: There is a large anterior lower neck mass measuring approximately 3.5 x 5 x 4 cm, occupying a right a nterior paratracheal location, inseparable from the mid, lower, and upper poles of the right lobe of the thyroid gland. There is a tiny apical upper pole normal appearing component of the right lobe of the thyroid gland, but the rest of the right lobe is completely engulfed by this mass which extends inferiorly to the superior edge of the clavicular head level. There is irregularly-shaped lar ge confluent low density central regions within the solid mass, the rest of which enhances similar to the rest of the thyroid gland. The mass is centered on the right side, but a component involves th e entire isthmus, and communicates with a tiny remnant of left thyroidal tissue. The mass contains coarse calcifications. It mildly displaces the trachea posteriorly and to the left. There are no enlarged cervical lymph nodes. Larynx is unremarkable. The submandibular, parotid, carotid, parapharyngeal, perivertebral, paperboard machine operator, and posterior cervica l, spaces, are unremarkable. Trachea and bilateral mainstem bronchi are patent and clear. Cervical spondylosis. No destructive osseous lesion. Nonspecific mild groundglass changes in bilateral upper lobes. No consolidation. IMPRESSION: 1. Large thyroid nodule centered to the right of midline. Recommend further characterization with thy roid ultrasound. 2. The rest of the thyroid parenchyma is small and atrophic. 3. No cervical lymphadenopathy.
[2020-11-17] MEDS ORDERED: Iopamidol-370 76% 500 ML 1 ML ONE (11:45)
== END 2020-11-17 07:36 | disposition home or self-care (01) ==
LOC: BICCT 07:35
PROVIDERS: ATTEND Internal Medicine
DX: R59.1 Generalized enlarged lymph nodes (principal); E04.1 Nontoxic single thyroid nodule
CPT/HCPCS: 70491; 82565; Q9967

== ENCOUNTER 2020-11-27 12:38 | Outpatient (CLI) | payer MEDICARE, MEDICAID | END 2020-11-27 12:39 | disposition home or self-care (01) | LOC: BICULT 12:38 | PROVIDERS: ATTEND Internal Medicine | DX: E04.1 Nontoxic single thyroid nodule (principal); E07.89 Other specified disorders of thyroid | CPT/HCPCS: 76536 ==

== ENCOUNTER 2021-01-12 12:44 | Outpatient (CLI) | payer MEDICARE, MEDICAID ==
[2021-01-12 13:07] LABS: Hemoglobin 13.2 g/dL (12.0-15.5)
[2021-01-12 13:17] LABS: Anion Gap 13 mmol/L (10-20); BUN (Urea Nitrogen) 18 mg/dL (9.8-20.1); Calc. Creatinine Clearance 0 mL/min (70-130); Calcium 9.2 mg/dL (7.8-10.44); Carbon Dioxide 28 mmol/L (23-31); Chloride 105 mmol/L (98-107); Glucose 94 mg/dL (80-115); Sodium 141 mmol/L (136-145)
[2021-01-13 03:27] LABS: SARS-CoV-2 PCR by NAA Not Detected (NotDetected)
== END 2021-01-12 12:45 | disposition home or self-care (01) ==
LOC: LABBT 12:44
PROVIDERS: ATTEND Otolaryngology Plastic Surgery within the Head & Neck
DX: J34.2 Deviated nasal septum (principal); E07.9 Disorder of thyroid, unspecified
CPT/HCPCS: 80048; 85014; 85018; U0003; U0005; 87635

== ENCOUNTER 2021-01-17 10:03 | Observation (INO) | payer MEDICARE, MEDICAID ==
[2021-01-17] MEDS ORDERED: Fentanyl 100 MCG/2 ML VIAL ONE ×3 (11:57→15:16)
[2021-01-17] MEDS ORDERED: Midazolam HCl 2 mg/2 ml Vial ONE (12:00)
[2021-01-17] MEDS ORDERED: Lidocaine 1% w/Epinephrine 1:100K 20 ML VIAL ONE (12:33)
[2021-01-17] MEDS ORDERED: Ondansetron PF 4 MG/2 ML Vial ONE (12:56)
[2021-01-17] MEDS ORDERED: Dexamethasone 20 MG/5 ML VIAL ONE (12:56)
[2021-01-17] MEDS ORDERED: PHENYLEPHRINE-NS 100 MCG/ML 10 ML SYRINGE ONE (12:56)
[2021-01-17] MEDS ORDERED: Lidocaine 1% PF 5 ML VIAL ONE (12:56)
[2021-01-17] MEDS ORDERED: PROPOFOL 200 MG/20 ML VIAL ONE (12:56)
[2021-01-17] MEDS ORDERED: Morphine 2 MG/ML VIAL SLOW IVP PRN (14:43)
[2021-01-17] MEDS ORDERED: Ondansetron PF 4 MG/2 ML Vial IVP PRN (14:43)
[2021-01-17] MEDS ORDERED: ceFAZolin 1 GM/D5W 1 GM in Premix Bag 1 BAG IVPB SCH (15:00)
[2021-01-17] MEDS ORDERED: Non-Formulary Medication 1 EACH PO PRN (15:12)
[2021-01-17] MEDS ORDERED: Ondansetron HCl/PF 4 MG/2 ML Vial IVP PRN (15:15)
[2021-01-17] MEDS ORDERED: Promethazine HCl 25 MG/ML VIAL IM/IV PRN (15:15)
[2021-01-17 17:19] VITALS: BMI 36.3
[2021-01-17] MEDS: Hydrocodone-Acetamin 15 ML UDCUP PO PRN ×2 (17:42→23:45)
[2021-01-17] MEDS: Calcium Carbonate 500 MG TAB PO SCH (17:43)
[2021-01-17] MEDS: Sodium Chloride 0.45% 1,000 ML IV SCH ×2 (18:15→21:02)
[2021-01-17] MEDS: ceFAZolin 1 GM/D5W 1 GM in Premix Bag 1 BAG IVPB SCH (21:02)
[2021-01-18] MEDS: ceFAZolin 1 GM/D5W 1 GM in Premix Bag 1 BAG IVPB SCH ×2 (05:13→12:16)
[2021-01-18] MEDS: Hydrocodone-Acetamin 15 ML UDCUP PO PRN (05:14)
[2021-01-18 05:58] LABS: #Lymphocytes 1.4 thou/uL (1.20-3.40); #Monocytes 0.2 thou/uL (0.11-0.59); #Neutrophils 5.5 thou/uL (1.40-6.50); %Basophils 0.1 % (0.0-1.0); %Eosinophils 0.2 % (0.0-10.0); %Lymphocytes 19.3 % (21.0-51.0); %Monocytes 3.2 % (0.0-10.0); %Neutrophils 77.3 % (42.0-75.0); Hemoglobin 13.2 g/dL (12.0-16.0); Mean Corpuscular HGB CONC 34.6 g/dL (32.0-36.0); Mean Corpuscular Hemoglobin 34.9 pg (27.0-31.0); Mean Platelet Volume 9.8 fL (7.4-10.4); Platelet Count 181 thou/uL (130-400); RBC Distribution Width 11.2 % (11.5-14.5); Red Blood Cell (RBC) Count 3.78 mill/uL (4.20-5.40); White Blood Cell (WBC) Count 7.1 thou/uL (4.8-10.8)
[2021-01-18 06:28] LABS: ALT (SGPT) 8 U/L (8-55); AST (SGOT) 21 U/L (5-34); Albumin 3.2 g/dL (3.4-4.8); Alkaline Phosphatase 84 U/L (40-110); Anion Gap 15 mmol/L (10-20); BUN (Urea Nitrogen) 18 mg/dL (9.8-20.1); Bilirubin, Total 0.3 mg/dL (0.2-1.2); Calc. Creatinine Clearance 74 mL/min (70-130); Calcium 8.7 mg/dL (7.8-10.44); Carbon Dioxide 22 mmol/L (23-31); Chloride 103 mmol/L (98-107); Globulin 3.3 g/dL (2.4-3.5); Glucose 119 mg/dL (80-115); Potassium 4.5 mmol/L (3.5-5.1); Protein, Total 6.5 g/dL (5.8-8.1); Sodium 135 mmol/L (136-145)
[2021-01-18] MEDS: Sodium Chloride 0.45% 1,000 ML IV SCH (06:39)
[2021-01-18] MEDS: Calcium Carbonate 500 MG TAB PO SCH ×2 (08:35→11:03)
[2021-01-18] MEDS ORDERED: Calcitriol 0.25 MCG CAP PO SCH (09:00)
[2021-01-18 11:21] VITALS: BP 114/48; TEMP 97.4
== END 2021-01-18 13:42 | disposition home or self-care (01) ==
LOC: SDC 10:03 → SJJU 14:37
PROVIDERS: ADMIT Otolaryngology Plastic Surgery within the Head & Neck; ATTEND Otolaryngology Plastic Surgery within the Head & Neck
PROC: 0GTK0ZZ Resection of Thyroid Gland, Open Approach (ICD-10-PCS; principal; 2021-01-17)
PROC: 0GBJ0ZZ Excision of Thyroid Gland Isthmus, Open Approach (ICD-10-PCS; 2021-01-17)
DX: E04.2 Nontoxic multinodular goiter (principal); K21.9 Gastro-esophageal reflux disease without esophagitis; M19.90 Unspecified osteoarthritis, unspecified site; G89.29 Other chronic pain; M54.9 Dorsalgia, unspecified; J45.909 Unspecified asthma, uncomplicated; J34.2 Deviated nasal septum; I12.9 Hypertensive chronic kidney disease with stage 1 through stage 4 chronic kidney disease, or unspecified chronic kidney disease; N18.30 Chronic kidney disease, stage 3 unspecified; E66.9 Obesity, unspecified; Z68.36 Body mass index [BMI] 36.0-36.9, adult; Z79.899 Other long term (current) drug therapy; Z88.1 Allergy status to other antibiotic agents; Z88.2 Allergy status to sulfonamides; Z91.041 Radiographic dye allergy status
CPT/HCPCS: 60240; 80053; 82310 ×2; 83970; 85025; 88307; 88311; G0378 ×2; 36415; J0690; J1100; J2250; J2405; J2704; J3010

== ENCOUNTER 2021-06-07 09:13 | Outpatient (CLI) | payer MEDICARE, MEDICAID | END 2021-06-07 09:14 | disposition home or self-care (01) | LOC: NM 09:13 | PROVIDERS: ATTEND Otolaryngology Plastic Surgery within the Head & Neck | DX: E21.3 Hyperparathyroidism, unspecified (principal) | CPT/HCPCS: 78072; 82310; 83970; A9500; 36415 ==

== ENCOUNTER 2021-06-15 13:31 | Outpatient (CLI) | payer MEDICARE, MEDICAID ==
[~2021-06-15 13:31] MED LIST changes: -Iopamidol 370 76% 100 ML VIAL ONE; -Iopamidol 370 76% 50 ML VIAL FS ONE; +Iopamidol-370 76% 500 ML 1 ML ONE
== END 2021-06-15 13:32 | disposition home or self-care (01) ==
LOC: BICCT 13:31
PROVIDERS: ATTEND Otolaryngology Plastic Surgery within the Head & Neck
DX: E21.3 Hyperparathyroidism, unspecified (principal); Z90.89 Acquired absence of other organs; N28.1 Cyst of kidney, acquired
CPT/HCPCS: 36415; 70492; 80048; 81001; 83970; Q9967

== ENCOUNTER 2021-06-25 14:54 | Outpatient (CLI) | payer MEDICARE, MEDICAID | END 2021-06-25 14:55 | disposition home or self-care (01) | LOC: BICULT 14:54 | PROVIDERS: ATTEND Urology | DX: N28.1 Cyst of kidney, acquired (principal) | CPT/HCPCS: 76770 ==

== ENCOUNTER 2021-08-03 10:42 | Outpatient (CLI) | payer MEDICARE, MEDICAID ==
[2021-08-03 13:40] LABS: Hemoglobin 12.3 g/dL (12.0-15.5); Mean Corpuscular HGB CONC 32.1 g/dL (32.0-36.0); Mean Corpuscular Volume 102.7 fl (81.6-98.3); Mean Platelet Volume 12.7 fl (7.4-10.4); Platelet Count 186 10x3/uL (150-450); RBC Distribution Width 13.4 % (11.5-14.5); Red Blood Cell (RBC) Count 3.73 10x6/uL (3.90-5.03); White Blood Cell (WBC) Count 5.7 10x3/uL (3.5-10.5)
[2021-08-03 13:58] LABS: Anion Gap 14 mmol/L (10-20); BUN (Urea Nitrogen) 17 mg/dL (9.8-20.1); Calc. Creatinine Clearance 0 mL/min (70-130); Calcium 8.8 mg/dL (7.8-10.44); Carbon Dioxide 24 mmol/L (23-31); Chloride 108 mmol/L (98-107); Glucose 89 mg/dL (83-110); Potassium 5.1 mmol/L (3.5-5.1); Sodium 141 mmol/L (136-145)
[2021-08-04 14:28] LABS: SARS-CoV-2 PCR by NAA Not Detected (NotDetected)
== END 2021-08-03 10:43 | disposition home or self-care (01) ==
LOC: LABBT 10:42
PROVIDERS: ATTEND Otolaryngology Plastic Surgery within the Head & Neck
DX: Z01.812 Encounter for preprocedural laboratory examination (principal); E21.3 Hyperparathyroidism, unspecified; R49.8 Other voice and resonance disorders; R53.83 Other fatigue; R20.2 Paresthesia of skin; Z20.822 Contact with and (suspected) exposure to COVID-19
CPT/HCPCS: 80048; 85027; U0003; U0005

== ENCOUNTER 2021-08-08 10:28 | Day surgery (SDC) | payer MEDICARE, MEDICAID ==
[2021-08-07 13:26] VITALS: BMI 29.2
[2021-08-08] MEDS ORDERED: Lidocaine 1% w/Epinephrine 1:100K 20 ML VIAL ONE (12:10)
[2021-08-08] MEDS ORDERED: Midazolam HCl 2 mg/2 ml Vial ONE (12:17)
[2021-08-08] MEDS ORDERED: Fentanyl 100 MCG/2 ML VIAL ONE ×2 (12:17→14:55)
[2021-08-08] MEDS ORDERED: Succinylcholine 200 MG/10 ml SYRINGE FS ONE (12:31)
[2021-08-08] MEDS ORDERED: Ondansetron PF 4 MG/2 ML Vial ONE ×2 (12:31→15:53)
[2021-08-08] MEDS ORDERED: Lidocaine 1% PF 5 ML VIAL ONE (12:31)
[2021-08-08] MEDS ORDERED: PROPOFOL 200 MG/20 ML VIAL ONE (12:31)
[2021-08-08] MEDS ORDERED: hydrALAZINE 20 MG/ML VIAL ONE (15:48)
[2021-08-08] MEDS ORDERED: Promethazine HCl 25 MG/ML VIAL ONE (16:43)
== END 2021-08-08 17:15 | disposition home or self-care (01) ==
LOC: SDC 10:28
PROVIDERS: ATTEND Otolaryngology Plastic Surgery within the Head & Neck
PROC: 0GJR0ZZ Inspection of Parathyroid Gland, Open Approach (ICD-10-PCS; principal; 2021-08-08)
DX: E21.3 Hyperparathyroidism, unspecified (principal); E89.0 Postprocedural hypothyroidism; J45.909 Unspecified asthma, uncomplicated; G25.81 Restless legs syndrome; K21.9 Gastro-esophageal reflux disease without esophagitis; N18.30 Chronic kidney disease, stage 3 unspecified; Z79.899 Other long term (current) drug therapy; Z88.1 Allergy status to other antibiotic agents; Z88.2 Allergy status to sulfonamides; Z91.041 Radiographic dye allergy status; Z98.84 Bariatric surgery status
CPT/HCPCS: C1776; J0360; J2250; J2405; J2550; J2704; J3010

== ENCOUNTER 2021-11-09 10:23 | Outpatient (CLI) | payer MEDICARE, OTHER | END 2021-11-09 10:24 | disposition home or self-care (01) | LOC: BICMAMMO 10:23 | PROVIDERS: ATTEND Internal Medicine | DX: Z12.31 Encounter for screening mammogram for malignant neoplasm of breast (principal) | CPT/HCPCS: 77063; 77067 ==